=== PATIENT | male | born 1990 | race Caucasian/White ===

== ENCOUNTER 2017-09-01 17:10 | Emergency (ER) | payer BC, MEDICAID ==
[2017-09-01] MEDS ORDERED: Lidocaine 2% Viscous Solution 15 ML Cup PO ONE (17:38)
[2017-09-01] MEDS ORDERED: Benzocaine 20% Topical Spray UD MUCMEM ONE (17:38)
[2017-09-01] MEDS ORDERED: Acetaminophen/HYDROcodone 325-7.5 MG Tab PO ONE (17:38)
--- NOTE | 2017-09-01 17:44 | EDM.PDOC ---
ED HPI GENERAL MEDICAL PROBLEM - General Chief Complaint: General Stated Complaint: TOOTH PAIN Time Seen by Provider: 09/01/17 17:22 - History of Present Illness INITIAL COMMENTS - FREE TEXT/NARRATIVE: HISTORY AND PHYSICAL: History of present illness: The patient is a 26-year-old male who presents with complaints of tooth pain at the left lower molar area which he has known about and in fact his dentist is going to work on next week on Thursday. Patient says he had 2 other teeth removed recently by the dentist and was not given anything for pain and no antibiotics. Patient says he was on antibiotics but he only has several days left in the dentist thought that that would carry him through next week and he is concerned. Patient says that he has been taking Tylenol and Motrin is not working. He has no gross swelling of his face and he otherwise is healthy without fever chills chest pain shortness of breath or sore throat. Review of systems: As per history of present illness and below otherwise all systems reviewed and negative. Past medical history: As per history of present illness and as reviewed below otherwise noncontributory. Surgical history: As per history of present illness and as reviewed below otherwise noncontributory. Social history: No reported history of drug or alcohol abuse. Family history: As per history of present illness and as reviewed below otherwise noncontributory. Physical exam: General: Well-developed well-nourished man who is nontoxic and speaking clearly and easily in the ED. He has no visible facial swelling HEENT: Atraumatic, normocephalic, pupils reactive, negative for conjunctival pallor or scleral icterus, mucous membranes moist, throat clear, neck supple, nontender, trachea midline. There is no cervical adenopathy or nuchal rigidity. There are several areas of dental disease noted throughout the mouth and the area patient indicates is the most discomforting has a silver filling in place already and there is a small chip in the tooth seen. It is a left lower molar. There is some mild gum swelling in the surround but there is no fluctuance Lungs: Clear to auscultation, breath sounds equal bilaterally, chest nontender. Heart: S1S2, regular and rhythm no overt murmurs. Abdomen: Soft, nondistended, nontender. NABS Pelvis: Deferred Genitourinary: Deferred. Rectal: Deferred. Extremities: Atraumatic, negative for cords or calf pain. Neurovascular unremarkable. Neuro: Awake, alert, oriented. Cranial nerves II through XII unremarkable. Cerebellum unremarkable. Motor and sensory unremarkable throughout. Exam nonfocal. Diagnostics: [] Therapeutics: Dental balls Poulan 1 Impression: Dental pain Definitive disposition and diagnosis as appropriate pending reevaluation and review of above. Tooth/Teeth Pain Score (Numeric/FACES): 9 - Related Data Allergies Allergy/AdvReac Type Severity Reaction Status Date / Time No Known Allergies Allergy Verified 09/01/17 17:26 Home Meds: Home Meds . [No Known Home Meds] 05/01/17 [History] Past Medical History - Past Health History Medical/Surgical History: Denies Medical/Surgical History - Infectious Disease History Infectious Disease History: Reports: Chicken Pox - Past Surgical History Head Surgeries/Procedures: Reports: None Respiratory Surgical History: Reports: None Neurological Surgical History: Reports: None Musculoskeletal Surgical History: Reports: Other (See Below) Other Musculoskeletal Surgeries/Procedures:: Hand surgery Dermatological Surgical History: Reports: None Social & Family History - Family History Family Medical History: Unobtainable HEENT: Reports: None - Tobacco Use Smoking Status *Q: Former Smoker Years of Tobacco use: 5 Packs/Tins Daily: 1 Used Tobacco, but Quit: Yes Month Tobacco Last Used: July, Second Hand Smoke Exposure: Yes - Caffeine Use Caffeine Use: Reports: Coffee - Recreational Drug Use Recreational Drug Use: No Drug Use in Last 12 Months: Yes Recreational Drug Type: Reports: Marijuana/Hashish Recreational Drug Use Frequency: Rarely ED ROS GENERAL - Review of Systems Review Of Systems: ROS reveals no pertinent complaints other than HPI. ED EXAM, GENERAL - Physical Exam Exam: See Below (See dictation) Course - Vital Signs Last Recorded V/S: Last Vital Signs Temp 36.6 C 09/01/17 17:23 Pulse 98 09/01/17 17:23 Resp 12 09/01/17 17:23 BP 149/75 H 09/01/17 17:23 Pulse Ox 98 09/01/17 17:23 - Orders/Labs/Meds Orders: Active Orders 24 hr Category Date Time Status Acetaminophen/HYDROcodone [Poulan 325-7.5 MG] Med 09/01/17 17:38 Once 1 tab PO ONETIME ONE Benzocaine [Hurricaine One 20%] Med 09/01/17 17:38 Once 2 each MUCMEM ONETIME ONE Lidocaine 2% [Xylocaine 2% Viscous] Med 09/01/17 17:38 Once 15 ml PO ONETIME ONE Departure - Departure Time of Disposition: 17:42 Disposition: Home, Self-Care 01 Condition: Good Clinical Impression: Pain, dental - Discharge Information Referrals: PCP,None [Primary Care Provider] - Additional Instructions: The following information is given to patients seen in the emergency department who are being discharged to home. This information is to outline your options for follow-up care. We provide all patients seen in our emergency department with a follow-up referral. The need for follow-up, as well as the timing and circumstances, are variable depending upon the specifics of your emergency department visit. If you don't have a primary care physician on staff, we will provide you with a referral. We always advise you to contact your personal physician following an emergency department visit to inform them of the circumstance of the visit and for follow-up with them and/or the need for any referrals to a consulting specialist. The emergency department will also refer you to a specialist when appropriate. This referral assures that you have the opportunity for followup care with a specialist. All of these measure are taken in an effort to provide you with optimal care, which includes your followup. Under all circumstances we always encourage you to contact your private physician who remains a resource for coordinating your care. When calling for followup care, please make the office aware that this follow-up is from your recent emergency room visit. If for any reason you are refused follow-up, please contact the [facility] emergency department at and ask to speak to the emergency department charge nurse. [facility] Primary care- Internal [place] [address] Please take antibiotics as prescribed until finished. Please use the dental balls are been given here in the ER as shown and as needed. Continue with over- the-counter Tylenol or ibuprofen. Return to ER as needed and as discussed in please call and follow-up with her dentist tomorrow as we discussed. Please note that you did receive 1 tablet of Poulan 7.5/325 here in the emergency department any need to inform your employer if they do a random drug tests that you did receive this medication in the emergency department under the direction of the physician. - My Orders Last 24 Hours: My Active Orders 09/01/17 17:38 Acetaminophen/HYDROcodone [Poulan 325-7.5 MG] 1 tab PO ONETIME ONE Benzocaine [Hurricaine One 20%] 2 each MUCMEM ONETIME ONE Lidocaine 2% [Xylocaine 2% Viscous] 15 ml PO ONETIME ONE - Assessment/Plan Last 24 Hours: My Active Orders 09/01/17 17:38 Acetaminophen/HYDROcodone [Poulan 325-7.5 MG] 1 tab PO ONETIME ONE Benzocaine [Hurricaine One 20%] 2 each MUCMEM ONETIME ONE Lidocaine 2% [Xylocaine 2% Viscous] 15 ml PO ONETIME ONE
[2017-09-01 18:15] VITALS: BP 121/71
== END 2017-09-01 18:13 | disposition home or self-care (01) ==
LOC: MW.ED 17:10
DX: K08.89 Other specified disorders of teeth and supporting structures (principal); Z87.891 Personal history of nicotine dependence
CPT/HCPCS: 99282; A9270; 99284

== ENCOUNTER 2019-05-01 14:10 | Emergency (ER) | payer MEDICAID ==
[2019-05-01] MEDS ORDERED: Ketorolac 60 MG/2 ML SDV IM ONE (14:28)
--- NOTE | 2019-05-01 14:29 | EDM.PDOC ---
ED HPI GENERAL MEDICAL PROBLEM - General Stated Complaint: INJURED RIGHT KNEE Time Seen by Provider: 05/01/19 14:15 Source of Information: Reports: Patient History Limitations: Reports: No Limitations - History of Present Illness INITIAL COMMENTS - FREE TEXT/NARRATIVE: History of present illness: []Patient complains of right knee swelling and pain. He denies any trauma or any pre-existing injuries to this knee recall doing anything that would have caused this pain. He denies any fevers, chills or any other joint pain. Patient is ambulatory. Patient also requesting antibiotics for a dental abscess. Review of systems: As per history of present illness and below otherwise all systems reviewed and negative. Past medical history: As per history of present illness and as reviewed below otherwise noncontributory. Surgical history: As per history of present illness and as reviewed below otherwise noncontributory. Social history: No reported history of drug or alcohol abuse. Family history: As per history of present illness and as reviewed below otherwise noncontributory. Physical exam: General: Well developed, well nourished in NAD HEENT: Atraumatic, normocephalic, pupils reactive, negative for conjunctival pallor or scleral icterus, mucous membranes moist, throat clear, neck supple, nontender, trachea midline. Lungs: Clear to auscultation, breath sounds equal bilaterally, chest nontender. Heart: S1S2, regular, negative for clicks, rubs, or JVD. Abdomen: NABS, Soft, nondistended, nontender. Negative for masses or hepatosplenomegaly. Negative for costovertebral tenderness. Pelvis: Stable nontender. Genitourinary: Deferred. Rectal: Deferred. Extremities: Mild swelling above the joint, negative for cords or calf pain. Neurovascular unremarkable. Neuro: Awake, alert, oriented. Cranial nerves II through XII unremarkable. Cerebellum unremarkable. Motor and sensory unremarkable throughout. Exam nonfocal. Skin:warm and dry Diagnostics: X-ray right knee negative Therapeutics: Toradol IM crutches ED Course: Stable Impression: Right knee pain Prescriptions: Alex-Vemike Ortiz Plan: Use ice to knee as much as possible, ibuprofen, Follow-up with orthopedics, use crutches for walking, return if symptoms worsen Definitive disposition and diagnosis as appropriate pending reevaluation and review of above. Right Knee Pain Score (Numeric/FACES): 9 - Related Data Allergies Allergy/AdvReac Type Severity Reaction Status Date / Time No Known Allergies Allergy Verified 05/01/19 14:42 Home Meds: Home Meds Buprenorphine HCl/Naloxone HCl [Suboxone 12 mg-3 mg Sl Film] 12 mg PO DAILY 05/13 [History] Penicillin V Potassium 500 mg PO Q6HR #40 tab 05/01/19 [Rx] busPIRone [Buspar] 15 mg PO TID 05/01/19 [History] Past Medical History - Past Health History Medical/Surgical History: Denies Medical/Surgical History - Infectious Disease History Infectious Disease History: Reports: Chicken Pox - Past Surgical History Head Surgeries/Procedures: Reports: None Respiratory Surgical History: Reports: None Neurological Surgical History: Reports: None Musculoskeletal Surgical History: Reports: Other (See Below) Other Musculoskeletal Surgeries/Procedures:: Hand surgery Dermatological Surgical History: Reports: None Social & Family History - Family History Family Medical History: Unobtainable HEENT: Reports: None - Caffeine Use Caffeine Use: Reports: Coffee Review of Systems - Review of Systems Review Of Systems: See Below ED EXAM, GENERAL - Physical Exam Exam: See Below Course - Vital Signs Last Recorded V/S: Last Vital Signs Temp 96.4 F 05/01/19 14:44 Pulse 105 H 05/01/19 14:44 Resp 17 05/01/19 14:44 BP 117/73 05/01/19 14:44 Pulse Ox 96 05/01/19 14:44 - Orders/Labs/Meds Orders: Active Orders 24 hr Category Date Time Status Knee 3V Rt [CR] Stat Exams 05/01/19 14:21 Taken DME for Discharge [COMM] Stat Oth 05/01/19 15:09 Ordered Meds: Medications Discontinued Medications Generic Name Dose Route Start Last Admin Trade Name Freq PRN Reason Stop Dose Admin Ketorolac Tromethamine 60 mg 05/01/19 14:28 Toradol IM 05/01/19 14:29 ONETIME ONE Departure - Departure Time of Disposition: 15:10 Disposition: Home, Self-Care 01 Condition: Good Clinical Impression: Right knee pain Qualifiers: Chronicity: acute Qualified Code(s): M25.561 - Pain in right knee - Discharge Information *PRESCRIPTION DRUG MONITORING PROGRAM REVIEWED*: No *COPY OF PRESCRIPTION DRUG MONITORING REPORT IN PATIENT LUIS A: No Prescriptions: Penicillin V Potassium 500 mg PO Q6HR #40 tab Referrals: PCP,None [Primary Care Provider] - Additional Instructions: The following information is given to patients seen in the emergency department who are being discharged to home. This information is to outline your options for follow-up care. We provide all patients seen in our emergency department with a follow-up referral. The need for follow-up, as well as the timing and circumstances, are variable depending upon the specifics of your emergency department visit. If you don't have a primary care physician on staff, we will provide you with a referral. We always advise you to contact your personal physician following an emergency department visit to inform them of the circumstance of the visit and for follow-up with them and/or the need for any referrals to a consulting specialist. The emergency department will also refer you to a specialist when appropriate. This referral assures that you have the opportunity for follow-up care with a specialist. All of these measure are taken in an effort to provide you with optimal care, which includes your follow-up. Under all circumstances we always encourage you to contact your private physician who remains a resource for coordinating your care. When calling for follow-up care, please make the office aware that this follow-up is from your recent emergency room visit. If for any reason you are refused follow-up, please contact the [facility] Emergency Department at and asked to speak to the emergency department charge nurse. [facility] [address], [address] [place] [address] - My Orders Last 24 Hours: My Active Orders 05/01/19 14:21 Knee 3V Rt [CR] Stat 05/01/19 15:09 DME for Discharge [COMM] Stat - Assessment/Plan Last 24 Hours: My Active Orders 05/01/19 14:21 Knee 3V Rt [CR] Stat 05/01/19 15:09 DME for Discharge [COMM] Stat
--- NOTE | 2019-05-01 15:18 | CR ---
INDICATION: Pain. No injury. TECHNIQUE: Three views right knee. FINDINGS: There is no joint effusion. Joint spaces are maintained. No bony erosive or bony productive changes or osteochondral lesion. IMPRESSION: Negative right knee. Dictated by Gracy Francois MD @ May 01 2019 3:16PM Signed by Dr. Gracy Francois @ May 01 2019 3:17PM
[2019-05-01 15:48] VITALS: BP 113/59
== END 2019-05-01 15:48 | disposition home or self-care (01) ==
LOC: MW.ED 14:10
DX: M25.561 Pain in right knee (principal)
CPT/HCPCS: 73562; 96372; 99283; J1885

== ENCOUNTER 2019-05-09 18:47 | Observation (INO) | payer MEDICAID ==
[2019-05-09] MEDS ORDERED: Sodium Chloride 0.9% 1,000 ML IV ONE (19:21)
[2019-05-09] MEDS ORDERED: Vancomycin 1 GM SDV ONE (19:56)
[2019-05-09] MEDS ORDERED: Sodium Chloride 0.9% 250 ML ONE (19:57)
[2019-05-09 20:00] LABS: CHLORIDE,CL 101 mmol/L (98-107); SODIUM,NA 136 mmol/L (136-148)
[2019-05-09] MEDS ORDERED: Piperacillin/Tazobactam 3.375 GM in Sodium Chloride 0.9% 50 ML IV ONE (20:00)
--- NOTE | 2019-05-09 20:13 | EDM.PDOC ---
ED HPI GENERAL MEDICAL PROBLEM - General Chief Complaint: Lower Extremity Injury/Pain Stated Complaint: PT HURT RT KNEE Time Seen by Provider: 05/09/19 19:19 - History of Present Illness INITIAL COMMENTS - FREE TEXT/NARRATIVE: HISTORY AND PHYSICAL: History of present illness: Patient 28-year-old white male history of IV drug abuse was been on Suboxone but states he has been using Suboxone via intravenous injection per himself who was seen on the seventh of this month with right knee pain and swelling he had ultrasound at that time an x-ray that were unremarkable other than localized swelling there was no evidence of deep venous thrombosis he did not report fever at that time and denied any trauma he was sent to orthopedic surgery repeated no ultrasound that same day that was suggestive of possible abscess and was sent to [facility] for orthopedic care which was unavailable at that time he was admitted for IV antibiotics and orthopedic consultation and MRI was discharged on clindamycin and he returns now with increasing pain redness and fevers high as 103. There's been no nausea or vomiting he denies any new trauma or other concern Review of systems: As per history of present illness and below otherwise all systems reviewed and negative. Past medical history: As per history of present illness and as reviewed below otherwise noncontributory. Surgical history: As per history of present illness and as reviewed below otherwise noncontributory. Social history: No reported history of drug or alcohol abuse. Family history: As per history of present illness and as reviewed below otherwise noncontributory. Physical exam: HEENT: Atraumatic, normocephalic, pupils reactive, negative for conjunctival pallor or scleral icterus, mucous membranes moist, throat clear, neck supple, nontender, trachea midline. Lungs: Clear to auscultation, breath sounds equal bilaterally, chest nontender. Heart: S1S2, regular, negative for clicks, rubs, or JVD. Abdomen: Soft, nondistended, nontender. Negative for masses or hepatosplenomegaly. Negative for costovertebral tenderness. Pelvis: Stable nontender. Genitourinary: Deferred. Rectal: Deferred. Extremities: Patient is noted have large swelling and tenderness to his right knee with marked tenderness and limited range of motion secondary tenderness he is noted to have erythema and what appears to be a lymphangitis. Neurovascular exam is unremarkable Neuro: Awake, alert, oriented. Cranial nerves II through XII unremarkable. Cerebellum unremarkable. Motor and sensory unremarkable throughout. Exam nonfocal. Diagnostics: CBC CMP x-ray right knee blood culture 2 Therapeutics: Saline 1 L bolus vancomycin 1 g IV Zosyn 3.375 g IV Impression: #1 right knee pain/swelling etiology to be determined rule out septic arthritis Definitive disposition and diagnosis as appropriate pending reevaluation and review of above. Right Knee Pain Score (Numeric/FACES): 5 - Related Data Allergies Allergy/AdvReac Type Severity Reaction Status Date / Time No Known Allergies Allergy Verified 05/09/19 19:09 Home Meds: Home Meds Buprenorphine HCl/Naloxone HCl [Suboxone 12 mg-3 mg Sl Film] 12 mg PO DAILY 05/13 [History] busPIRone [Buspar] 15 mg PO TID 05/01/19 [History] Acetaminophen 1,000 mg PO ASDIRECTED 05/09/19 [History] Clindamycin HCl [Cleocin] 300 mg PO QID 05/09/19 [History] Ibuprofen 800 mg PO ASDIRECTED 05/09/19 [History] Past Medical History - Past Health History Medical/Surgical History: Denies Medical/Surgical History Respiratory History: Reports: Asthma Psychiatric History: Reports: Addiction, Anxiety, Depression - Infectious Disease History Infectious Disease History: Reports: Chicken Pox - Past Surgical History Head Surgeries/Procedures: Reports: None Respiratory Surgical History: Reports: None Neurological Surgical History: Reports: None Musculoskeletal Surgical History: Reports: Other (See Below) Other Musculoskeletal Surgeries/Procedures:: Hand surgery Dermatological Surgical History: Reports: None Social & Family History - Family History Family Medical History: Unobtainable HEENT: Reports: None - Tobacco Use Smoking Status *Q: Current Every Day Smoker Years of Tobacco use: 6 Packs/Tins Daily: 0.5 - Caffeine Use Caffeine Use: Reports: Coffee, Soda - Recreational Drug Use Recreational Drug Use: Yes Drug Use in Last 12 Months: Yes Recreational Drug Type: Reports: Heroin Review of Systems - Review of Systems Review Of Systems: ROS reveals no pertinent complaints other than HPI. ED EXAM, GENERAL - Physical Exam Exam: See Below (See dictation) Course - Vital Signs Last Recorded V/S: Last Vital Signs Temp 37.3 C 05/09/19 19:12 Pulse 88 05/09/19 21:53 Resp 18 05/09/19 21:53 BP 120/63 05/09/19 21:53 Pulse Ox 98 05/09/19 21:53 - Orders/Labs/Meds Orders: Active Orders 24 hr Category Date Time Status Femur wo Cont Rt [CT] Stat Exams 05/09/19 22:09 Ordered CRYSTALS,BODY FLUID [BF] Stat Lab 05/09/19 20:45 Received CULTURE BLOOD [BC] Stat Lab 05/09/19 19:28 Received CULTURE BLOOD [BC] Stat Lab 05/09/19 19:43 Received CULTURE BODY FLUID + SMEAR [RM] Stat Lab 05/09/19 20:45 Received Blood Culture x2 Reflex Set [OM.PC] Stat Oth 05/09/19 19:20 Ordered Labs: Laboratory Tests 05/09/19 05/09/19 05/09/19 Range/Units 19:28 19:28 19:28 WBC 12.90 H (4.0-11.0) K/uL RBC 4.30 L (4.50-5.90) M/uL Hgb 11.9 L (13.0-17.0) g/dL Hct 35.4 L (38.0-50.0) % MCV 82.3 (80.0-98.0) fL MCH 27.7 (27.0-32.0) pg MCHC 33.6 (31.0-37.0) g/dL RDW Std Deviation 39.8 (28.0-62.0) fl RDW Coeff of Michele 13 (11.0-15.0) % Plt Count 298 (150-400) K/uL MPV 9.10 (7.40-12.00) fL Neut % (Auto) 70.9 (48.0-80.0) % Lymph % (Auto) 14.8 L (16.0-40.0) % [place] % (Auto) 12.2 (0.0-15.0) % Eos % (Auto) 1.9 (0.0-7.0) % Baso % (Auto) 0.2 (0.0-1.5) % Neut # (Auto) 9.2 H (1.4-5.7) K/uL Lymph # (Auto) 1.9 (0.6-2.4) K/uL [place] # (Auto) 1.6 H (0.0-0.8) K/uL Eos # (Auto) 0.2 (0.0-0.7) K/uL Baso # (Auto) 0.0 (0.0-0.1) K/uL Nucleated RBC % 0.0 /100WBC Nucleated RBCs # 0 K/uL ESR 49 H (0-14) mm/hr Sodium 136 (136-148) mmol/L Potassium 3.4 L (3.5-5.1) mmol/L Chloride 101 (98-107) mmol/L Carbon Dioxide 26.7 (21.0-32.0) mmol/L BUN 10 (7.0-18.0) mg/dL Creatinine 0.8 (0.8-1.3) mg/dL Est Cr Clr Drug Dosing 149.54 mL/min Estimated GFR (MDRD) > 60.0 ml/min Glucose 149 H (74-106) mg/dL Calcium 8.3 L (8.5-10.1) mg/dL Total Bilirubin 0.2 (0.2-1.0) mg/dL AST 14 L (15-37) IU/L ALT 14 (14-63) IU/L Alkaline Phosphatase 88 (46-116) U/L C-Reactive Protein (0.00-0.90) mg/dL Total Protein 7.3 (6.4-8.2) g/dL Albumin 2.6 L (3.4-5.0) g/dL Globulin 4.7 H (2.6-4.0) g/dL Albumin/Globulin Ratio 0.6 L (0.9-1.6) Urine Color Urine Appearance Urine pH (5.0-8.0) Ur Specific [place] (1.001-1.035) Urine Protein (NEGATIVE) mg/dL Urine Glucose (UA) (NEGATIVE) mg/dL Urine Ketones (NEGATIVE) mg/dL Urine Occult Blood (NEGATIVE) Urine Nitrite (NEGATIVE) Urine Bilirubin (NEGATIVE) Urine Urobilinogen (<2.0) EU/dL Ur Leukocyte Esterase (NEGATIVE) Urine RBC (0-2/HPF) Urine WBC (0-5/HPF) Ur Epithelial Cells (NONE-FEW) Urine Bacteria (NEGATIVE) Fluid Type Fluid Color Fluid Appearance Fluid WBC K/uL Fluid RBC M/uL Fluid Mononuclear Cell % Fl Polymorphonucl Cell % Urine Opiates Screen (NEGATIVE) Ur Oxycodone Screen (NEGATIVE) Urine Methadone Screen (NEGATIVE) Ur Barbiturates Screen (NEGATIVE) Ur Phencyclidine Scrn (NEGATIVE) Ur Amphetamine Screen (NEGATIVE) U Methamphetamines Scrn (NEGATIVE) U Benzodiazepines Scrn (NEGATIVE) U Cocaine Metab Screen (NEGATIVE) U Marijuana (THC) Screen (NEGATIVE) 05/09/19 05/09/19 05/09/19 Range/Units 19:28 20:45 20:50 WBC (4.0-11.0) K/uL RBC (4.50-5.90) M/uL Hgb (13.0-17.0) g/dL Hct (38.0-50.0) % MCV (80.0-98.0) fL MCH (27.0-32.0) pg MCHC (31.0-37.0) g/dL RDW Std Deviation (28.0-62.0) fl RDW Coeff of Michele (11.0-15.0) % Plt Count (150-400) K/uL MPV (7.40-12.00) fL Neut % (Auto) (48.0-80.0) % Lymph % (Auto) (16.0-40.0) % [place] % (Auto) (0.0-15.0) % Eos % (Auto) (0.0-7.0) % Baso % (Auto) (0.0-1.5) % Neut # (Auto) (1.4-5.7) K/uL Lymph # (Auto) (0.6-2.4) K/uL [place] # (Auto) (0.0-0.8) K/uL Eos # (Auto) (0.0-0.7) K/uL Baso # (Auto) (0.0-0.1) K/uL Nucleated RBC % /100WBC Nucleated RBCs # K/uL ESR (0-14) mm/hr Sodium (136-148) mmol/L Potassium (3.5-5.1) mmol/L Chloride (98-107) mmol/L Carbon Dioxide (21.0-32.0) mmol/L BUN (7.0-18.0) mg/dL Creatinine (0.8-1.3) mg/dL Est Cr Clr Drug Dosing mL/min Estimated GFR (MDRD) ml/min Glucose (74-106) mg/dL Calcium (8.5-10.1) mg/dL Total Bilirubin (0.2-1.0) mg/dL AST (15-37) IU/L ALT (14-63) IU/L Alkaline Phosphatase (46-116) U/L C-Reactive Protein 20.20 H (0.00-0.90) mg/dL Total Protein (6.4-8.2) g/dL Albumin (3.4-5.0) g/dL Globulin (2.6-4.0) g/dL Albumin/Globulin Ratio (0.9-1.6) Urine Color YELLOW Urine Appearance CLEAR Urine pH 6.0 (5.0-8.0) Ur Specific [place] <= 1.005 (1.001-1.035) Urine Protein NEGATIVE (NEGATIVE) mg/dL Urine Glucose (UA) NEGATIVE (NEGATIVE) mg/dL Urine Ketones NEGATIVE (NEGATIVE) mg/dL Urine Occult Blood TRACE-INTACT H (NEGATIVE) Urine Nitrite NEGATIVE (NEGATIVE) Urine Bilirubin NEGATIVE (NEGATIVE) Urine Urobilinogen 0.2 (<2.0) EU/dL Ur Leukocyte Esterase NEGATIVE (NEGATIVE) Urine RBC NONE SEEN (0-2/HPF) Urine WBC NONE SEEN (0-5/HPF) Ur Epithelial Cells NOT SEEN (NONE-FEW) Urine Bacteria RARE (NEGATIVE) Fluid Type SYN Fluid Color RED Fluid Appearance CLOUDY Fluid WBC 2.61 K/uL Fluid RBC 0.13 M/uL Fluid Mononuclear Cell 39.4 % Fl Polymorphonucl Cell 60.6 % Urine Opiates Screen (NEGATIVE) Ur Oxycodone Screen (NEGATIVE) Urine Methadone Screen (NEGATIVE) Ur Barbiturates Screen (NEGATIVE) Ur Phencyclidine Scrn (NEGATIVE) Ur Amphetamine Screen (NEGATIVE) U Methamphetamines Scrn (NEGATIVE) U Benzodiazepines Scrn (NEGATIVE) U Cocaine Metab Screen (NEGATIVE) U Marijuana (THC) Screen (NEGATIVE) 05/09/19 Range/Units 20:50 WBC (4.0-11.0) K/uL RBC (4.50-5.90) M/uL Hgb (13.0-17.0) g/dL Hct (38.0-50.0) % MCV (80.0-98.0) fL MCH (27.0-32.0) pg MCHC (31.0-37.0) g/dL RDW Std Deviation (28.0-62.0) fl RDW Coeff of Michele (11.0-15.0) % Plt Count (150-400) K/uL MPV (7.40-12.00) fL Neut % (Auto) (48.0-80.0) % Lymph % (Auto) (16.0-40.0) % [place] % (Auto) (0.0-15.0) % Eos % (Auto) (0.0-7.0) % Baso % (Auto) (0.0-1.5) % Neut # (Auto) (1.4-5.7) K/uL Lymph # (Auto) (0.6-2.4) K/uL [place] # (Auto) (0.0-0.8) K/uL Eos # (Auto) (0.0-0.7) K/uL Baso # (Auto) (0.0-0.1) K/uL Nucleated RBC % /100WBC Nucleated RBCs # K/uL ESR (0-14) mm/hr Sodium (136-148) mmol/L Potassium (3.5-5.1) mmol/L Chloride (98-107) mmol/L Carbon Dioxide (21.0-32.0) mmol/L BUN (7.0-18.0) mg/dL Creatinine (0.8-1.3) mg/dL Est Cr Clr Drug Dosing mL/min Estimated GFR (MDRD) ml/min Glucose (74-106) mg/dL Calcium (8.5-10.1) mg/dL Total Bilirubin (0.2-1.0) mg/dL AST (15-37) IU/L ALT (14-63) IU/L Alkaline Phosphatase (46-116) U/L C-Reactive Protein (0.00-0.90) mg/dL Total Protein (6.4-8.2) g/dL Albumin (3.4-5.0) g/dL Globulin (2.6-4.0) g/dL Albumin/Globulin Ratio (0.9-1.6) Urine Color Urine Appearance Urine pH (5.0-8.0) Ur Specific [place] (1.001-1.035) Urine Protein (NEGATIVE) mg/dL Urine Glucose (UA) (NEGATIVE) mg/dL Urine Ketones (NEGATIVE) mg/dL Urine Occult Blood (NEGATIVE) Urine Nitrite (NEGATIVE) Urine Bilirubin (NEGATIVE) Urine Urobilinogen (<2.0) EU/dL Ur Leukocyte Esterase (NEGATIVE) Urine RBC (0-2/HPF) Urine WBC (0-5/HPF) Ur Epithelial Cells (NONE-FEW) Urine Bacteria (NEGATIVE) Fluid Type Fluid Color Fluid Appearance Fluid WBC K/uL Fluid RBC M/uL Fluid Mononuclear Cell % Fl Polymorphonucl Cell % Urine Opiates Screen NEGATIVE (NEGATIVE) Ur Oxycodone Screen NEGATIVE (NEGATIVE) Urine Methadone Screen NEGATIVE (NEGATIVE) Ur Barbiturates Screen NEGATIVE (NEGATIVE) Ur Phencyclidine Scrn NEGATIVE (NEGATIVE) Ur Amphetamine Screen POSITIVE (NEGATIVE) U Methamphetamines Scrn NEGATIVE (NEGATIVE) U Benzodiazepines Scrn NEGATIVE (NEGATIVE) U Cocaine Metab Screen NEGATIVE (NEGATIVE) U Marijuana (THC) Screen POSITIVE (NEGATIVE) Meds: Medications Discontinued Medications Generic Name Dose Route Start Last Admin Trade Name Freq PRN Reason Stop Dose Admin Sodium Chloride 1,000 mls @ 999 mls/hr 05/09/19 19:21 05/09/19 19:33 Normal Saline IV 05/09/19 20:21 999 mls/hr .Bolus ONE Administration Vancomycin HCl 1 gm/ Sodium 250 mls @ 166 mls/hr 05/09/19 19:40 05/09/19 20: 08 Chloride IV 05/09/19 21:10 166 mls/hr ONETIME ONE Administration Piperacillin Sod/Tazobactam 50 mls @ 100 mls/hr 05/09/19 20:00 05/09/19 21:52 Sod 3.375 gm/ Sodium Chloride IV 05/09/19 20:29 100 mls/hr ONETIME ONE Administration Sodium Chloride Confirm 05/09/19 19:57 05/09/19 20:09 Normal Saline Administered 05/09/19 19:58 Not Given Dose 250 mls @ as directed .ROUTE .STK-MED ONE Vancomycin HCl Confirm 05/09/19 19:56 05/09/19 20:09 Vancomycin Administered 05/09/19 19:57 Not Given Dose 1 gm .ROUTE .STK-MED ONE Departure - Departure Time of Disposition: 22:20 Disposition: Admitted As Inpatient 65 Condition: Good Clinical Impression: Cellulitis, History of intravenous drug abuse Right knee pain Qualifiers: Chronicity: acute Qualified Code(s): M25.561 - Pain in right knee - Discharge Information Referrals: PCP,None [Primary Care Provider] - Forms: ED Department Discharge - My Orders Last 24 Hours: My Active Orders 05/09/19 19:20 Blood Culture x2 Reflex Set [OM.PC] Stat 05/09/19 19:28 CULTURE BLOOD [BC] Stat 05/09/19 19:43 CULTURE BLOOD [BC] Stat - Assessment/Plan Last 24 Hours: My Active Orders 05/09/19 19:20 Blood Culture x2 Reflex Set [OM.PC] Stat 05/09/19 19:28 CULTURE BLOOD [BC] Stat 05/09/19 19:43 CULTURE BLOOD [BC] Stat
--- NOTE | 2019-05-09 20:27 | CR ---
TECHNIQUE: Portable AP chest. INDICATION: Knee infection. FINDINGS: Lungs are clear. Normal heart size and pulmonary vascularity. No pleural effusion. No pneumothorax. IMPRESSION: Normal chest. Dictated by Pritesh Lane MD @ 05/09/2019 8:26:49 PM Dictated by: Pritesh Lane MD @ 05/09/2019 20:26:52 (Electronically Signed)
--- NOTE | 2019-05-09 20:31 | CR ---
TECHNIQUE: Three views of the right knee. INDICATION: Pain, swelling, infection. FINDINGS: AP and lateral images are underpenetrated. No right knee fracture, dislocation, or effusion identified. Joint space preserved. Normal right knee Dictated by Pritesh Lane MD @ 05/09/2019 8:30:03 PM Dictated by: Pritesh Lane MD @ 05/09/2019 20:30:07 (Electronically Signed)
--- NOTE | 2019-05-09 21:24 | PCM.CONS ---
H&P History of Present Illness - General Date of Service: 05/09/19 Source of Information: Patient, Old Records History Limitations: Reports: No Limitations - History of Present Illness Initial Comments - Free Text/Narative: Patient is a 28-year-old male who presents to the emergency room with complaint of right knee and thigh pain. He states that his pain began approximately 8 days ago. He presented to the emergency room at that time. He was instructed to ice the knee and take ibuprofen as needed. He was started on Pen-Vee K for a dental abscess at that time. He was subsequently seen in the clinic by the orthopedic PA. He was referred for an ultrasound of the right lower extremity. Ultrasound of the medial right lower thigh performed on May 06, 2019 showed a multiloculated, complex fluid collection deep in the subcutaneous tissues in the medial lower thigh suspicious for an abscess. This measured 4.8 x 4.1 x 5.0 cm. He was then referred to [facility] for orthopedic care. The records from [facility] show that he was admitted overnight and given IV antibiotics. An MRI report of the right knee did show evidence of intra-articular fluid with no other abnormalities. He was discharged home this past Thursday. He states that over the past 2 days he has had an increase in his right knee and thigh pain. He has had fever and chills at home. He states he has documented fevers of 103. He cannot recall any specific injury to the right knee. He does have a history of IV drug abuse and has been in treatment. He states he has not used any drugs since January 2019. He is currently on Suboxone and chooses to inject the Suboxone. He states that he has not ever injected into the region of his right medial thigh. He denies distal paralysis or paresthesias. Location: Reports: Lower Extremity, Right Quality: Reports: Throbbing Severity: Moderate Improves with: Reports: Immobilization, Rest Worsens with: Reports: Movement Context: Denies: Sick Contact, Trauma Associated Symptoms: Reports: Fever/Chills, Malaise. Denies: Headaches, Nausea/ Vomiting, Shortness of Breath Right Knee Pain Score (Numeric/FACES): 5 - Related Data Allergies/Adverse Reactions: Allergies Allergy/AdvReac Type Severity Reaction Status Date / Time No Known Allergies Allergy Verified 05/09/19 19:09 Home Medications: Home Meds Buprenorphine HCl/Naloxone HCl [Suboxone 12 mg-3 mg Sl Film] 12 mg PO DAILY 05/13 [History] busPIRone [Buspar] 15 mg PO TID 05/01/19 [History] Acetaminophen 1,000 mg PO ASDIRECTED 05/09/19 [History] Clindamycin HCl [Cleocin] 300 mg PO QID 05/09/19 [History] Ibuprofen 800 mg PO ASDIRECTED 05/09/19 [History] Past Medical History - Past Health History Medical/Surgical History: Denies Medical/Surgical History Respiratory History: Reports: Asthma Psychiatric History: Reports: Addiction, Anxiety, Depression - Infectious Disease History Infectious Disease History: Reports: Chicken Pox - Past Surgical History Head Surgeries/Procedures: Reports: None Respiratory Surgical History: Reports: None Neurological Surgical History: Reports: None Musculoskeletal Surgical History: Reports: Other (See Below) Other Musculoskeletal Surgeries/Procedures:: Hand surgery Dermatological Surgical History: Reports: None Social & Family History - Family History Family Medical History: Unobtainable HEENT: Reports: None - Tobacco Use Smoking Status *Q: Current Every Day Smoker Years of Tobacco use: 6 Packs/Tins Daily: 0.5 - Caffeine Use Caffeine Use: Reports: Coffee, Soda - Recreational Drug Use Recreational Drug Use: Yes Drug Use in Last 12 Months: Yes Recreational Drug Type: Reports: Heroin - Living Situation & Occupation Occupation: Unemployed H&P Review of Systems - Review of Systems: Review Of Systems: See Below General: Reports: Fever, Chills, Malaise HEENT: Reports: No Symptoms Pulmonary: Reports: No Symptoms Cardiovascular: Reports: No Symptoms Gastrointestinal: Reports: No Symptoms Genitourinary: Reports: No Symptoms Musculoskeletal: Reports: Joint Pain, Joint Swelling Skin: Reports: Erythema (right medial thigh) Psychiatric: Reports: No Symptoms Neurological: Reports: No Symptoms Hematologic/Lymphatic: Reports: No Symptoms Exam - Exam Exam: See Below - Vital Signs Vital Signs: Last Vital Signs Temp 99.1 F 05/09/19 19:12 Pulse 83 05/09/19 19:12 Resp 24 H 05/09/19 19:12 BP 135/68 05/09/19 19:12 Pulse Ox 98 05/09/19 19:12 Weight: 195 kg - Exam General: Alert, Oriented, 4 HEENT: Conjunctiva Clear, Hearing Intact, Nares Patent Neck: Supple, Trachea Midline, 2 Lungs: Normal Respiratory Effort Cardiovascular: Regular Rate GI/Abdominal Exam: Soft Neuro Extensive - Mental Status: Alert, Oriented x3, Normal Mood/Affect, Normal Cognition Psychiatric: Alert, Normal Affect, Normal Mood Physical Exam Comments:: Exam of the right knee: Gait: Not assessed Erythema along the right medial thigh noted. He does have palpable tenderness in this area however no specific fluid collection is noted. He has no significant joint effusion. Skin integrity is intact. Tenderness to palpation: No tenderness along the medial and lateral joint line. Majority of tenderness appears to be along the medial thigh. Range of motion: Fixed at approximately 45 of flexion. He complains of pain with passive or active motion. Stable to varus and valgus stress testing No calf tenderness There is no pain with gentle rotation of either hip, and both show symmetrical motion. Anterior tib/EHL/gastroc strength is 5/ 5. Sensation is grossly intact throughout the lower extremity. Dorsalis pedis and posterior tibial pulses are 2 +. - Patient Data Lab Results Last 24 hrs: Laboratory Results - last 24 hr 05/09/19 05/09/19 05/09/19 Range/Units 19:28 19:28 19:28 WBC 12.90 H (4.0-11.0) K/uL RBC 4.30 L (4.50-5.90) M/uL Hgb 11.9 L (13.0-17.0) g/dL Hct 35.4 L (38.0-50.0) % MCV 82.3 (80.0-98.0) fL MCH 27.7 (27.0-32.0) pg MCHC 33.6 (31.0-37.0) g/dL RDW Std Deviation 39.8 (28.0-62.0) fl RDW Coeff of Michele 13 (11.0-15.0) % Plt Count 298 (150-400) K/uL MPV 9.10 (7.40-12.00) fL Neut % (Auto) 70.9 (48.0-80.0) % Lymph % (Auto) 14.8 L (16.0-40.0) % Barnwell % (Auto) 12.2 (0.0-15.0) % Eos % (Auto) 1.9 (0.0-7.0) % Baso % (Auto) 0.2 (0.0-1.5) % Neut # (Auto) 9.2 H (1.4-5.7) K/uL Lymph # (Auto) 1.9 (0.6-2.4) K/uL Barnwell # (Auto) 1.6 H (0.0-0.8) K/uL Eos # (Auto) 0.2 (0.0-0.7) K/uL Baso # (Auto) 0.0 (0.0-0.1) K/uL Nucleated RBC % 0.0 /100WBC Nucleated RBCs # 0 K/uL ESR 49 H (0-14) mm/hr Sodium 136 (136-148) mmol/L Potassium 3.4 L (3.5-5.1) mmol/L Chloride 101 (98-107) mmol/L Carbon Dioxide 26.7 (21.0-32.0) mmol/L BUN 10 (7.0-18.0) mg/dL Creatinine 0.8 (0.8-1.3) mg/dL Est Cr Clr Drug Dosing 149.54 mL/min Estimated GFR (MDRD) > 60.0 ml/min Glucose 149 H (74-106) mg/dL Calcium 8.3 L (8.5-10.1) mg/dL Total Bilirubin 0.2 (0.2-1.0) mg/dL AST 14 L (15-37) IU/L ALT 14 (14-63) IU/L Alkaline Phosphatase 88 (46-116) U/L C-Reactive Protein (0.00-0.90) mg/dL Total Protein 7.3 (6.4-8.2) g/dL Albumin 2.6 L (3.4-5.0) g/dL Globulin 4.7 H (2.6-4.0) g/dL Albumin/Globulin Ratio 0.6 L (0.9-1.6) Urine Color Urine Appearance Urine pH (5.0-8.0) Ur Specific Lena (1.001-1.035) Urine Protein (NEGATIVE) mg/dL Urine Glucose (UA) (NEGATIVE) mg/dL Urine Ketones (NEGATIVE) mg/dL Urine Occult Blood (NEGATIVE) Urine Nitrite (NEGATIVE) Urine Bilirubin (NEGATIVE) Urine Urobilinogen (<2.0) EU/dL Ur Leukocyte Esterase (NEGATIVE) Urine RBC (0-2/HPF) Urine WBC (0-5/HPF) Ur Epithelial Cells (NONE-FEW) Urine Bacteria (NEGATIVE) Fluid Type Fluid Color Fluid Appearance Fluid WBC K/uL Fluid RBC M/uL Fluid Mononuclear Cell % Fl Polymorphonucl Cell % Urine Opiates Screen (NEGATIVE) Ur Oxycodone Screen (NEGATIVE) Urine Methadone Screen (NEGATIVE) Ur Barbiturates Screen (NEGATIVE) Ur Phencyclidine Scrn (NEGATIVE) Ur Amphetamine Screen (NEGATIVE) U Methamphetamines Scrn (NEGATIVE) U Benzodiazepines Scrn (NEGATIVE) U Cocaine Metab Screen (NEGATIVE) U Marijuana (THC) Screen (NEGATIVE) 05/09/19 05/09/19 05/09/19 Range/Units 19:28 20:45 20:50 WBC (4.0-11.0) K/uL RBC (4.50-5.90) M/uL Hgb (13.0-17.0) g/dL Hct (38.0-50.0) % MCV (80.0-98.0) fL MCH (27.0-32.0) pg MCHC (31.0-37.0) g/dL RDW Std Deviation (28.0-62.0) fl RDW Coeff of Michele (11.0-15.0) % Plt Count (150-400) K/uL MPV (7.40-12.00) fL Neut % (Auto) (48.0-80.0) % Lymph % (Auto) (16.0-40.0) % Barnwell % (Auto) (0.0-15.0) % Eos % (Auto) (0.0-7.0) % Baso % (Auto) (0.0-1.5) % Neut # (Auto) (1.4-5.7) K/uL Lymph # (Auto) (0.6-2.4) K/uL Barnwell # (Auto) (0.0-0.8) K/uL Eos # (Auto) (0.0-0.7) K/uL Baso # (Auto) (0.0-0.1) K/uL Nucleated RBC % /100WBC Nucleated RBCs # K/uL ESR (0-14) mm/hr Sodium (136-148) mmol/L Potassium (3.5-5.1) mmol/L Chloride (98-107) mmol/L Carbon Dioxide (21.0-32.0) mmol/L BUN (7.0-18.0) mg/dL Creatinine (0.8-1.3) mg/dL Est Cr Clr Drug Dosing mL/min Estimated GFR (MDRD) ml/min Glucose (74-106) mg/dL Calcium (8.5-10.1) mg/dL Total Bilirubin (0.2-1.0) mg/dL AST (15-37) IU/L ALT (14-63) IU/L Alkaline Phosphatase (46-116) U/L C-Reactive Protein 20.20 H (0.00-0.90) mg/dL Total Protein (6.4-8.2) g/dL Albumin (3.4-5.0) g/dL Globulin (2.6-4.0) g/dL Albumin/Globulin Ratio (0.9-1.6) Urine Color YELLOW Urine Appearance CLEAR Urine pH 6.0 (5.0-8.0) Ur Specific Lena <= 1.005 (1.001-1.035) Urine Protein NEGATIVE (NEGATIVE) mg/dL Urine Glucose (UA) NEGATIVE (NEGATIVE) mg/dL Urine Ketones NEGATIVE (NEGATIVE) mg/dL Urine Occult Blood TRACE-INTACT H (NEGATIVE) Urine Nitrite NEGATIVE (NEGATIVE) Urine Bilirubin NEGATIVE (NEGATIVE) Urine Urobilinogen 0.2 (<2.0) EU/dL Ur Leukocyte Esterase NEGATIVE (NEGATIVE) Urine RBC NONE SEEN (0-2/HPF) Urine WBC NONE SEEN (0-5/HPF) Ur Epithelial Cells NOT SEEN (NONE-FEW) Urine Bacteria RARE (NEGATIVE) Fluid Type SYN Fluid Color RED Fluid Appearance CLOUDY Fluid WBC 2.61 K/uL Fluid RBC 0.13 M/uL Fluid Mononuclear Cell 39.4 % Fl Polymorphonucl Cell 60.6 % Urine Opiates Screen (NEGATIVE) Ur Oxycodone Screen (NEGATIVE) Urine Methadone Screen (NEGATIVE) Ur Barbiturates Screen (NEGATIVE) Ur Phencyclidine Scrn (NEGATIVE) Ur Amphetamine Screen (NEGATIVE) U Methamphetamines Scrn (NEGATIVE) U Benzodiazepines Scrn (NEGATIVE) U Cocaine Metab Screen (NEGATIVE) U Marijuana (THC) Screen (NEGATIVE) 05/09/19 Range/Units 20:50 WBC (4.0-11.0) K/uL RBC (4.50-5.90) M/uL Hgb (13.0-17.0) g/dL Hct (38.0-50.0) % MCV (80.0-98.0) fL MCH (27.0-32.0) pg MCHC (31.0-37.0) g/dL RDW Std Deviation (28.0-62.0) fl RDW Coeff of Michele (11.0-15.0) % Plt Count (150-400) K/uL MPV (7.40-12.00) fL Neut % (Auto) (48.0-80.0) % Lymph % (Auto) (16.0-40.0) % Barnwell % (Auto) (0.0-15.0) % Eos % (Auto) (0.0-7.0) % Baso % (Auto) (0.0-1.5) % Neut # (Auto) (1.4-5.7) K/uL Lymph # (Auto) (0.6-2.4) K/uL Barnwell # (Auto) (0.0-0.8) K/uL Eos # (Auto) (0.0-0.7) K/uL Baso # (Auto) (0.0-0.1) K/uL Nucleated RBC % /100WBC Nucleated RBCs # K/uL ESR (0-14) mm/hr Sodium (136-148) mmol/L Potassium (3.5-5.1) mmol/L Chloride (98-107) mmol/L Carbon Dioxide (21.0-32.0) mmol/L BUN (7.0-18.0) mg/dL Creatinine (0.8-1.3) mg/dL Est Cr Clr Drug Dosing mL/min Estimated GFR (MDRD) ml/min Glucose (74-106) mg/dL Calcium (8.5-10.1) mg/dL Total Bilirubin (0.2-1.0) mg/dL AST (15-37) IU/L ALT (14-63) IU/L Alkaline Phosphatase (46-116) U/L C-Reactive Protein (0.00-0.90) mg/dL Total Protein (6.4-8.2) g/dL Albumin (3.4-5.0) g/dL Globulin (2.6-4.0) g/dL Albumin/Globulin Ratio (0.9-1.6) Urine Color Urine Appearance Urine pH (5.0-8.0) Ur Specific Lena (1.001-1.035) Urine Protein (NEGATIVE) mg/dL Urine Glucose (UA) (NEGATIVE) mg/dL Urine Ketones (NEGATIVE) mg/dL Urine Occult Blood (NEGATIVE) Urine Nitrite (NEGATIVE) Urine Bilirubin (NEGATIVE) Urine Urobilinogen (<2.0) EU/dL Ur Leukocyte Esterase (NEGATIVE) Urine RBC (0-2/HPF) Urine WBC (0-5/HPF) Ur Epithelial Cells (NONE-FEW) Urine Bacteria (NEGATIVE) Fluid Type Fluid Color Fluid Appearance Fluid WBC K/uL Fluid RBC M/uL Fluid Mononuclear Cell % Fl Polymorphonucl Cell % Urine Opiates Screen NEGATIVE (NEGATIVE) Ur Oxycodone Screen NEGATIVE (NEGATIVE) Urine Methadone Screen NEGATIVE (NEGATIVE) Ur Barbiturates Screen NEGATIVE (NEGATIVE) Ur Phencyclidine Scrn NEGATIVE (NEGATIVE) Ur Amphetamine Screen POSITIVE (NEGATIVE) U Methamphetamines Scrn NEGATIVE (NEGATIVE) U Benzodiazepines Scrn NEGATIVE (NEGATIVE) U Cocaine Metab Screen NEGATIVE (NEGATIVE) U Marijuana (THC) Screen POSITIVE (NEGATIVE) Result Diagrams: 05/09/19 19:28 05/09/19 19:28 Imaging Impressions Last 24 hrs: X-rays of the right knee show no acute osseous abnormality. WBC cell count from R knee 2610. Culture and crystals pending. Consult PN Assessment/Plan POD#: 0 Procedures: Procedures EMERGENCY DEPT VISIT (05/01/19) EMERGENCY DEPT VISIT (09/01/17) EMERGENCY DEPT VISIT (05/01/17) THER/PROPH/DIAG INJ SC/IM (05/01/19) X-RAY EXAM OF KNEE 3 (05/01/19) (1) Right knee pain SNOMED Code(s): 92199780 Code(s): M25.561 - PAIN IN RIGHT KNEE Current Visit: No Qualifiers: Chronicity: acute Qualified Code(s): M25.561 - Pain in right knee Problem List Initiated/Reviewed/Updated: Yes My Orders Last 24 Hours: My Active Orders 05/09/19 20:45 CRYSTALS,BODY FLUID [BF] Stat CULTURE BODY FLUID + SMEAR [RM] Stat Plan: R knee aspirate: Informed consent was obtained. Time out performed to ensure correct site and procedure. Using sterile technique, ~ 10ml of serosanguinous fluid was aspirated from the right knee. No purulence noted. Patient tolerated the procedure well. Fluid was sent for fluid analysis. Initial cell count shows inflammation, but infection less likely. At this time I discussed with the patient that I am concerned about the continued swelling and erythema along the medial aspect of the thigh. The initial ultrasound did show evidence of an abscess/fluid collection. The MRI report from the outside facility did not discuss this, however it is possible that the abscess was higher than the field of the MRI. The patient has been given a dose of vancomycin and Zosyn in the emergency room. His laboratory studies do show an elevated WBC count as well as elevated ESR and CRP. Blood cultures are currently pending. I believe that further imaging of the right knee /medial thigh is necessary. If abscess is noted, he may require debridement or aspiration. Will plan to get CT of the right femur tonight to look for abscess formation. Will admit to the hospital for IV abx. If CT is inconclusive, may need MRI in am to further evaluate the medial thigh. If CT shows any evidence of gas, will require urgent transfer as we do not have the capabilities to treat necrotizing fasciitis and patient would require higher level of care. Discussed with patient and family.
[2019-05-09] MEDS ORDERED: Ketorolac 30 MG/ML SDV ONE (22:27)
[2019-05-09] MEDS: Ketorolac 30 MG/ML SDV IVPUSH SCH (22:29)
--- NOTE | 2019-05-09 23:45 | CT ---
INDICATION: Infection of the right knee for 2 weeks. Increased pain and fever. Evaluate for abscess. TECHNIQUE: Noncontrast images mid pelvis to below the knee with axial, coronal and sagittal reformats. FINDINGS: Moderately large fluid collection behind the posteromedial knee likely Becker`s cyst. Some ill-defined fluid extends into the proximal margin of the gastrocnemius medial head. Strandy edema attenuation through the popliteal fossa. Some inflammation may be present in the and deep margin of the vastus medialis muscle although no definitive infiltrating fluid. Small effusion of the knee. No fluid extending into the calf. Some strandy inflammatory attenuation superficial to the medial gastrocnemius extends to the inferior field of view. No bone findings of significance. 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 Surrounding inflammation throughout the popliteal fossa. Ultrasound or a contrast MRI may help further characterize the extent of fluid is there is ongoing clinical concern. Please note that all CT scans at this facility use dose modulation, iterative reconstruction, and/or weight-based dosing when appropriate to reduce radiation dose to as low as reasonably achievable. Dictated by Jesse Purcell MD @ May 10 2019 8:05AM Signed by Dr. Jesse Purcell @ May 10 2019 8:13AM
[2019-05-10] MEDS ORDERED: Acetaminophen 500 MG Tab ONE (02:43)
[2019-05-10] MEDS ORDERED: Acetaminophen 325 MG/10.15 ML ML PO SCH (02:45)
[2019-05-10] MEDS: Piperacillin/Tazobactam 3.375 GM in Sodium Chloride 0.9% 50 ML IV SCH ×4 (02:53→19:30)
[2019-05-10] MEDS ORDERED: Acetaminophen 325 MG Tab PO SCH ×2 (03:00→20:00)
[2019-05-10] MEDS: Ketorolac 30 MG/ML SDV IVPUSH SCH ×4 (04:30→23:00)
[2019-05-10] MEDS: Lactated Ringers 1,000 ML IV SCH (08:17)
[2019-05-10] MEDS: Acetaminophen 1,000 MG in Premix Bag 1 BAG IV SCH ×2 (08:31→14:45)
--- NOTE | 2019-05-10 09:20 | PCM.SN ---
<Rosie Ray R - Last Filed: 05/10/19 09:55> - Free Text/Narrative Note: S: patient states he is starting to feel better as compared to admission last night primarily concerned with depletion of home suboxone - has f/u appt with [facility] today, mother is planning to present to that clinic and explain the patient's situation pt's mother and girlfriend are wondering if subutex (no naloxone component) is a better option for him at this point with possible upcoming surgery and requiring post-op pain medications otherwise no specific concerns O: Tmax 103.1 at 0253, currently 98.1 WBC 13.2 (12.9 on 05/09) ESR 58 (49 on 05/09) CRP 17.5 (20.20 on 05/09) blood cultures pending synovial studies not concerning for septic arthritis patient resting comfortably in bed with pillows under RLE R distal thigh continues to be diffusely tender with palpation, no obvious fluid collection or fluctuance mild overlying erythema position of comfort is 45* flexion at the knee at/ehl/gastroc 5/5, dp 2+, sensation intact distally A: R distal thigh abscess leukocytosis P: awaiting advanced imaging as ordered by Dr. Sanchez patient's mother will try to manage patient's suboxone/subutex prescription through [facility] discussed case with hospitalist as there is concern for withdrawal, appreciate their assistance will continue to monitor and discuss developing treatment recommendations with patient and family. <Luz Marina Sanchez R - Last Filed: 05/11/19 09:58> - Free Text/Narrative Note: Late entry Patient seen and examined at 1830 on 05/10/19. Patient states that he feels much better today. He has much less pain in his thigh. He denies any fever or chills. He has been out of bed to use the bathroom. He is able to move his knee better today. Vss, afeb Exam of the right lower extremity unchanged from previous exam. Erythema appears to be resolving. No discrete abscess palpated. Motion at the knee is -20 -60 with little pain in the knee. He complains of some pain in the distal medial thigh with knee motion. He has no calf tenderness. AT/EHL/gastroc 5/5. Sensation grossly intact. DP/PT pulses 2+. Aspirate of the distal thigh abscess performed in radiology shows gram-positive cocci. Knee aspirate is currently pending. Blood cultures are also pending. Echo cardiogram was done today and this has not yet been read. Assessment: R medial gastroc intramuscular abscess (per recent MRI with review with radiologist) Plan: At this time the patient appears to be improving with IV antibiotics. His CRP did decrease slightly, however his WBC count elevation persists. We will continue with the IV antibiotics. Possible mobilization and physical therapy tomorrow. Will obtain new laboratory studies in the morning. Patient is comfortable with the plan.
[2019-05-10] MEDS: VANCOMYCIN/WATER FOR INJ (PEG) 1.5 GM in Premix Bag 1 BAG IV SCH ×2 (09:59→16:37)
--- NOTE | 2019-05-10 11:05 | PCM.CONS ---
H&P History of Present Illness - General Date of Service: 05/10/19 Admit Problem/Dx: Admission Diagnosis/Problem Admission Diagnosis/Problem Cellulitis and abscess of lower extremity Source of Information: Patient History Limitations: Reports: No Limitations - History of Present Illness Initial Comments - Free Text/Narative: This 28 year old male with pmh of heroin abuse, recent placement on Suboxone after inpatient treatment, presented to the ED with complaints of fevers and R medial thigh pain. He initially saw Orthopedics last week and was transferred to [place] due to concerns of abscess to thigh and no MD available for drainage in OR. He was kept overnight and given IVFs, from patient report he was then sent home. Over the weekend he continued to have fevers, reach 103 with increasing pain to his R thigh. He denies trauma or injury. He denies injection of substances into his thigh. He reports he was injecting his Suboxone up until approximately 3 weeks ago. He has since stopped this and is using the film appropriately. He was placed in inpatient rehab for heroine addiction in January and was release in March when he started Suboxone. He follows with [facility] for Suboxone therapy here in [place]. He is anxious because he has run out of his Suboxone and missed his appointment yesterday as he was in the ED. He denies chest pain or SOB. No abdominal pain. He was recently treated for a abscess tooth with penicillin VK. He reports some diarrhea after antibiotics given in [place]. In the ED leukocytosis noted to be 12,000. BC obtained and he was treated with Vancomycin and Zosyn. Dr Sanchez aspirated knee and admitted patient for possible abscess to R thigh. Hospitalist service consulted for medical management with Suboxone. Right Knee Pain Score (Numeric/FACES): 2 - Related Data Allergies/Adverse Reactions: Allergies Allergy/AdvReac Type Severity Reaction Status Date / Time No Known Allergies Allergy Verified 05/09/19 19:09 Home Medications: Home Meds Buprenorphine HCl/Naloxone HCl [Suboxone 12 mg-3 mg Sl Film] 12 mg PO DAILY 05/13 [History] busPIRone [Buspar] 15 mg PO TID 05/01/19 [History] Acetaminophen 1,000 mg PO ASDIRECTED 05/09/19 [History] Clindamycin HCl [Cleocin] 300 mg PO QID 05/09/19 [History] Ibuprofen 800 mg PO ASDIRECTED 05/09/19 [History] Past Medical History - Past Health History Medical/Surgical History: Denies Medical/Surgical History HEENT History: Reports: None Cardiovascular History: Reports: None. Denies: CAD, Hypertension Respiratory History: Reports: Asthma Gastrointestinal History: Reports: None Genitourinary History: Reports: None Musculoskeletal History: Reports: Fracture (R hand) Psychiatric History: Reports: Addiction (heroin), Anxiety, Depression Endocrine/Metabolic History: Reports: None. Denies: Diabetes, Type II - Infectious Disease History Infectious Disease History: Reports: Chicken Pox, Hepatitis C - Past Surgical History Head Surgeries/Procedures: Reports: None HEENT Surgical History: Reports: None Respiratory Surgical History: Reports: None Neurological Surgical History: Reports: None Musculoskeletal Surgical History: Reports: Other (See Below) Other Musculoskeletal Surgeries/Procedures:: Hand surgery Dermatological Surgical History: Reports: None Social & Family History - Family History Family Medical History: Noncontributory HEENT: Reports: None - Tobacco Use Smoking Status *Q: Current Every Day Smoker Years of Tobacco use: 5 Packs/Tins Daily: 0.5 Used Tobacco, but Quit: No Second Hand Smoke Exposure: Yes - Caffeine Use Caffeine Use: Reports: Coffee, Soda - Alcohol Use Alcohol Use History: No - Recreational Drug Use Recreational Drug Use: Yes Drug Use in Last 12 Months: Yes Recreational Drug Type: Reports: Heroin, Marijuana/Hashish Recreational Drug Use Frequency: Monthly Recreational Drug Last Use: t-21 - Living Situation & Occupation Occupation: Unemployed H&P Review of Systems - Review of Systems: Review Of Systems: See Below General: Reports: Fever, Chills, Malaise HEENT: Reports: No Symptoms. Denies: Headaches, Sinus Congestion, Sore Throat Pulmonary: Reports: No Symptoms. Denies: Shortness of Breath Cardiovascular: Reports: No Symptoms. Denies: Chest Pain, Lightheadedness Gastrointestinal: Reports: Diarrhea. Denies: Abdominal Pain, Black Stool, Bloody Stool Genitourinary: Reports: No Symptoms. Denies: Dysuria, Frequency, Burning Musculoskeletal: Reports: Leg Pain (R thigh pain and R knee pain with movement) Skin: Reports: Erythema (R thigh) Neurological: Reports: No Symptoms Hematologic/Lymphatic: Reports: No Symptoms Immunologic: Reports: No Symptoms Exam - Exam Exam: See Below - Vital Signs Vital Signs: Last Vital Signs Temp 98.1 F 05/10/19 08:00 Pulse 70 05/10/19 08:00 Resp 20 05/10/19 08:00 BP 120/57 L 05/10/19 08:00 Pulse Ox 98 05/10/19 08:00 Weight: 90.401 kg - Exam General: Alert, Oriented Neck: Supple, Trachea Midline Lungs: Clear to Auscultation, Normal Respiratory Effort Cardiovascular: Regular Rate, Regular Rhythm, Normal S1, Normal S2. No: Systolic Murmur GI/Abdominal Exam: Normal Bowel Sounds, Soft, Non-Tender Extremities: No Pedal Edema, Normal Capillary Refill, Redness (R medial thigh. Aspiration site to R lateral knee covered with bandaid.). No: Normal Range of Motion (decreased due to pain on R knee) Neuro Extensive - Mental Status: Alert, Oriented x3 Neuro Extensive - Motor, Sensory, Reflexes: CN II-XII Intact, Normal Gait Psychiatric: Anxious, Agitated, Withdrawal Symptoms - Patient Data Lab Results Last 24 hrs: Laboratory Results - last 24 hr 05/09/19 05/09/19 05/09/19 Range/Units 19:28 19:28 19:28 WBC 12.90 H (4.0-11.0) K/uL RBC 4.30 L (4.50-5.90) M/uL Hgb 11.9 L (13.0-17.0) g/dL Hct 35.4 L (38.0-50.0) % MCV 82.3 (80.0-98.0) fL MCH 27.7 (27.0-32.0) pg MCHC 33.6 (31.0-37.0) g/dL RDW Std Deviation 39.8 (28.0-62.0) fl RDW Coeff of Michele 13 (11.0-15.0) % Plt Count 298 (150-400) K/uL MPV 9.10 (7.40-12.00) fL Neut % (Auto) 70.9 (48.0-80.0) % Lymph % (Auto) 14.8 L (16.0-40.0) % [place] % (Auto) 12.2 (0.0-15.0) % Eos % (Auto) 1.9 (0.0-7.0) % Baso % (Auto) 0.2 (0.0-1.5) % Neut # (Auto) 9.2 H (1.4-5.7) K/uL Lymph # (Auto) 1.9 (0.6-2.4) K/uL [place] # (Auto) 1.6 H (0.0-0.8) K/uL Eos # (Auto) 0.2 (0.0-0.7) K/uL Baso # (Auto) 0.0 (0.0-0.1) K/uL Nucleated RBC % 0.0 /100WBC Nucleated RBCs # 0 K/uL ESR 49 H (0-14) mm/hr Sodium 136 (136-148) mmol/L Potassium 3.4 L (3.5-5.1) mmol/L Chloride 101 (98-107) mmol/L Carbon Dioxide 26.7 (21.0-32.0) mmol/L BUN 10 (7.0-18.0) mg/dL Creatinine 0.8 (0.8-1.3) mg/dL Est Cr Clr Drug Dosing 149.54 mL/min Estimated GFR (MDRD) > 60.0 ml/min Glucose 149 H (74-106) mg/dL Calcium 8.3 L (8.5-10.1) mg/dL Total Bilirubin 0.2 (0.2-1.0) mg/dL AST 14 L (15-37) IU/L ALT 14 (14-63) IU/L Alkaline Phosphatase 88 (46-116) U/L C-Reactive Protein (0.00-0.90) mg/dL Total Protein 7.3 (6.4-8.2) g/dL Albumin 2.6 L (3.4-5.0) g/dL Globulin 4.7 H (2.6-4.0) g/dL Albumin/Globulin Ratio 0.6 L (0.9-1.6) Urine Color Urine Appearance Urine pH (5.0-8.0) Ur Specific [place] (1.001-1.035) Urine Protein (NEGATIVE) mg/dL Urine Glucose (UA) (NEGATIVE) mg/dL Urine Ketones (NEGATIVE) mg/dL Urine Occult Blood (NEGATIVE) Urine Nitrite (NEGATIVE) Urine Bilirubin (NEGATIVE) Urine Urobilinogen (<2.0) EU/dL Ur Leukocyte Esterase (NEGATIVE) Urine RBC (0-2/HPF) Urine WBC (0-5/HPF) Ur Epithelial Cells (NONE-FEW) Urine Bacteria (NEGATIVE) Fluid Type Fluid Color Fluid Appearance Fluid WBC K/uL Fluid RBC M/uL Fluid Mononuclear Cell % Fl Polymorphonucl Cell % Fluid Crystals Urine Opiates Screen (NEGATIVE) Ur Oxycodone Screen (NEGATIVE) Urine Methadone Screen (NEGATIVE) Ur Barbiturates Screen (NEGATIVE) Ur Phencyclidine Scrn (NEGATIVE) Ur Amphetamine Screen (NEGATIVE) U Methamphetamines Scrn (NEGATIVE) U Benzodiazepines Scrn (NEGATIVE) U Cocaine Metab Screen (NEGATIVE) U Marijuana (THC) Screen (NEGATIVE) 05/09/19 05/09/19 05/09/19 Range/Units 19:28 20:45 20:45 WBC (4.0-11.0) K/uL RBC (4.50-5.90) M/uL Hgb (13.0-17.0) g/dL Hct (38.0-50.0) % MCV (80.0-98.0) fL MCH (27.0-32.0) pg MCHC (31.0-37.0) g/dL RDW Std Deviation (28.0-62.0) fl RDW Coeff of Michele (11.0-15.0) % Plt Count (150-400) K/uL MPV (7.40-12.00) fL Neut % (Auto) (48.0-80.0) % Lymph % (Auto) (16.0-40.0) % [place] % (Auto) (0.0-15.0) % Eos % (Auto) (0.0-7.0) % Baso % (Auto) (0.0-1.5) % Neut # (Auto) (1.4-5.7) K/uL Lymph # (Auto) (0.6-2.4) K/uL [place] # (Auto) (0.0-0.8) K/uL Eos # (Auto) (0.0-0.7) K/uL Baso # (Auto) (0.0-0.1) K/uL Nucleated RBC % /100WBC Nucleated RBCs # K/uL ESR (0-14) mm/hr Sodium (136-148) mmol/L Potassium (3.5-5.1) mmol/L Chloride (98-107) mmol/L Carbon Dioxide (21.0-32.0) mmol/L BUN (7.0-18.0) mg/dL Creatinine (0.8-1.3) mg/dL Est Cr Clr Drug Dosing mL/min Estimated GFR (MDRD) ml/min Glucose (74-106) mg/dL Calcium (8.5-10.1) mg/dL Total Bilirubin (0.2-1.0) mg/dL AST (15-37) IU/L ALT (14-63) IU/L Alkaline Phosphatase (46-116) U/L C-Reactive Protein 20.20 H (0.00-0.90) mg/dL Total Protein (6.4-8.2) g/dL Albumin (3.4-5.0) g/dL Globulin (2.6-4.0) g/dL Albumin/Globulin Ratio (0.9-1.6) Urine Color Urine Appearance Urine pH (5.0-8.0) Ur Specific [place] (1.001-1.035) Urine Protein (NEGATIVE) mg/dL Urine Glucose (UA) (NEGATIVE) mg/dL Urine Ketones (NEGATIVE) mg/dL Urine Occult Blood (NEGATIVE) Urine Nitrite (NEGATIVE) Urine Bilirubin (NEGATIVE) Urine Urobilinogen (<2.0) EU/dL Ur Leukocyte Esterase (NEGATIVE) Urine RBC (0-2/HPF) Urine WBC (0-5/HPF) Ur Epithelial Cells (NONE-FEW) Urine Bacteria (NEGATIVE) Fluid Type SYN SYN Fluid Color RED Fluid Appearance CLOUDY Fluid WBC 2.61 K/uL Fluid RBC 0.13 M/uL Fluid Mononuclear Cell 39.4 % Fl Polymorphonucl Cell 60.6 % Fluid Crystals NONE SEEN Urine Opiates Screen (NEGATIVE) Ur Oxycodone Screen (NEGATIVE) Urine Methadone Screen (NEGATIVE) Ur Barbiturates Screen (NEGATIVE) Ur Phencyclidine Scrn (NEGATIVE) Ur Amphetamine Screen (NEGATIVE) U Methamphetamines Scrn (NEGATIVE) U Benzodiazepines Scrn (NEGATIVE) U Cocaine Metab Screen (NEGATIVE) U Marijuana (THC) Screen (NEGATIVE) 05/09/19 05/09/19 05/10/19 Range/Units 20:50 20:50 06:05 WBC 13.22 H (4.0-11.0) K/uL RBC 4.09 L (4.50-5.90) M/uL Hgb 11.3 L (13.0-17.0) g/dL Hct 33.8 L (38.0-50.0) % MCV 82.6 (80.0-98.0) fL MCH 27.6 (27.0-32.0) pg MCHC 33.4 (31.0-37.0) g/dL RDW Std Deviation 40.3 (28.0-62.0) fl RDW Coeff of Michele 13 (11.0-15.0) % Plt Count 309 (150-400) K/uL MPV 8.90 (7.40-12.00) fL Neut % (Auto) 67.7 (48.0-80.0) % Lymph % (Auto) 18.5 (16.0-40.0) % [place] % (Auto) 12.1 (0.0-15.0) % Eos % (Auto) 1.3 (0.0-7.0) % Baso % (Auto) 0.4 (0.0-1.5) % Neut # (Auto) 9.0 H (1.4-5.7) K/uL Lymph # (Auto) 2.5 H (0.6-2.4) K/uL [place] # (Auto) 1.6 H (0.0-0.8) K/uL Eos # (Auto) 0.2 (0.0-0.7) K/uL Baso # (Auto) 0.1 (0.0-0.1) K/uL Nucleated RBC % 0.0 /100WBC Nucleated RBCs # 0 K/uL ESR 58 H (0-14) mm/hr Sodium (136-148) mmol/L Potassium (3.5-5.1) mmol/L Chloride (98-107) mmol/L Carbon Dioxide (21.0-32.0) mmol/L BUN (7.0-18.0) mg/dL Creatinine (0.8-1.3) mg/dL Est Cr Clr Drug Dosing mL/min Estimated GFR (MDRD) ml/min Glucose (74-106) mg/dL Calcium (8.5-10.1) mg/dL Total Bilirubin (0.2-1.0) mg/dL AST (15-37) IU/L ALT (14-63) IU/L Alkaline Phosphatase (46-116) U/L C-Reactive Protein (0.00-0.90) mg/dL Total Protein (6.4-8.2) g/dL Albumin (3.4-5.0) g/dL Globulin (2.6-4.0) g/dL Albumin/Globulin Ratio (0.9-1.6) Urine Color YELLOW Urine Appearance CLEAR Urine pH 6.0 (5.0-8.0) Ur Specific [place] <= 1.005 (1.001-1.035) Urine Protein NEGATIVE (NEGATIVE) mg/dL Urine Glucose (UA) NEGATIVE (NEGATIVE) mg/dL Urine Ketones NEGATIVE (NEGATIVE) mg/dL Urine Occult Blood TRACE-INTACT H (NEGATIVE) Urine Nitrite NEGATIVE (NEGATIVE) Urine Bilirubin NEGATIVE (NEGATIVE) Urine Urobilinogen 0.2 (<2.0) EU/dL Ur Leukocyte Esterase NEGATIVE (NEGATIVE) Urine RBC NONE SEEN (0-2/HPF) Urine WBC NONE SEEN (0-5/HPF) Ur Epithelial Cells NOT SEEN (NONE-FEW) Urine Bacteria RARE (NEGATIVE) Fluid Type Fluid Color Fluid Appearance Fluid WBC K/uL Fluid RBC M/uL Fluid Mononuclear Cell % Fl Polymorphonucl Cell % Fluid Crystals Urine Opiates Screen NEGATIVE (NEGATIVE) Ur Oxycodone Screen NEGATIVE (NEGATIVE) Urine Methadone Screen NEGATIVE (NEGATIVE) Ur Barbiturates Screen NEGATIVE (NEGATIVE) Ur Phencyclidine Scrn NEGATIVE (NEGATIVE) Ur Amphetamine Screen POSITIVE (NEGATIVE) U Methamphetamines Scrn NEGATIVE (NEGATIVE) U Benzodiazepines Scrn NEGATIVE (NEGATIVE) U Cocaine Metab Screen NEGATIVE (NEGATIVE) U Marijuana (THC) Screen POSITIVE (NEGATIVE) Result Diagrams: 05/10/19 06:05 05/09/19 19:28 Segun Results Last 24 hrs: Microbiology 05/09/19 20:45 Gram Stain - Final Joint / Synovial Fluid - Knee, Right Consult PN Assessment/Plan Procedures: Procedures EMERGENCY DEPT VISIT (05/01/19) EMERGENCY DEPT VISIT (09/01/17) EMERGENCY DEPT VISIT (05/01/17) EXTREMITY STUDY (05/06/19) THER/PROPH/DIAG INJ SC/IM (05/01/19) US COMPL JOINT R-T W/IMG (05/06/19) X-RAY EXAM OF KNEE 3 (05/01/19) (1) Cellulitis SNOMED Code(s): 289498761 Code(s): L03.90 - CELLULITIS, UNSPECIFIED Current Visit: Yes Qualifiers: Site of cellulitis: extremity Site of cellulitis of extremity: lower extremity Laterality: right Qualified Code(s): L03.115 - Cellulitis of right lower limb (2) Right knee pain SNOMED Code(s): 03934812 Code(s): M25.561 - PAIN IN RIGHT KNEE Current Visit: Yes Qualifiers: Chronicity: acute Qualified Code(s): M25.561 - Pain in right knee (3) History of intravenous drug abuse SNOMED Code(s): 07137307573851047 Code(s): F19.11 - OTHER PSYCHOACTIVE SUBSTANCE ABUSE, IN REMISSION Current Visit: Yes Problem List Initiated/Reviewed/Updated: Yes My Orders Last 24 Hours: My Active Orders 05/10/19 10:15 Nicotine [Habitrol] 14 mg TRDERM DAILY 05/10/19 10:30 Buprenorphine HCl/Naloxone HCl [Suboxone 12 mg-3 mg Sl Film] 0 mg SL DAILY 05/10/19 11:04 Echo Comp wo Cont [US] Urgent Plan: This 28 year old male admitted with R thigh cellulitis with concern for abscess , with pmh of heroin IV use as well as recent Suboxone injection as well. 1. R thigh cellulitis: Per Orthopedic management. Agree with antibiotics. BC pending. Due to drug use and fevers will add ECHO to assess for vegetation. No murmur on exam, so far BC no growth. For pain, will reorder Suboxone now. Tylenol and Motrin acceptable. 2. Hx IV drug abuse: Instructed to still obtain prescription for Suboxone from clinic as we are unable to provide on discharge. VTE prophylaxis: Would recommended when deemed appropriate by Orthopedics.
[2019-05-10] MEDS ORDERED: Gadobenate Dimeglumine 529 MG/ML 20 ML SDV IVPUSH STA (11:15)
[2019-05-10] MEDS: Nicotine 14 MG/24 Hr Patch TRDERM SCH (12:23)
--- NOTE | 2019-05-10 12:41 | MR ---
EXAMINATION: MRI of the right femur with and without contrast HISTORY: Evaluate abscess COMPARISON: CT dated 05/09/2019 TECHNIQUE: Multiplanar and multisequence imaging obtained of the right femur before and following the administration of 17 mL of MultiHance. FINDINGS: There is a 5.7 x 4.1 cm heterogeneous fluid collection within the region of the origin of the medial gastrocnemius. There is an adjacent Becker's cyst which appears separate. There is mild edema and enhancement along the gastrocnemius musculature however there is no no significant proximal enhancement along the fascial planes. There is a trace joint fluid with minimal enhancement of the synovium, likely reactive. There is a trace enhancement and edema within the adjacent medial femoral condyle. ACL and the PCL appear intact. IMPRESSION: 1. There is a 5.7 x 4.1 cm collection at the origin of the medial gastrocnemius, likely an intramuscular abscess. There is likely adjacent cellulitis and early osteomyelitis of the medial femoral condyle is not excluded. 2. No definite enhancement along the fascial planes to suggest fasciitis at this time. 3. Small joint effusion and Becker's cyst.
[2019-05-10] MEDS: NALOXONE 2 MG SL SCH (13:05)
[2019-05-10] MEDS: BUPRENORPHINE SL SCH (13:05)
[2019-05-10] MEDS: Acetaminophen 500 MG Tab PO SCH (19:30)
[2019-05-11] MEDS: VANCOMYCIN/WATER FOR INJ (PEG) 1.5 GM in Premix Bag 1 BAG IV SCH ×2 (00:45→09:51)
[2019-05-11] MEDS: Piperacillin/Tazobactam 3.375 GM in Sodium Chloride 0.9% 50 ML IV SCH ×2 (02:20→09:00)
[2019-05-11] MEDS: Acetaminophen 500 MG Tab PO SCH ×2 (02:22→09:01)
[2019-05-11] MEDS: Lactated Ringers 1,000 ML IV SCH (04:00)
[2019-05-11] MEDS: Ketorolac 30 MG/ML SDV IVPUSH SCH ×2 (04:45→09:53)
--- NOTE | 2019-05-11 08:38 | US ---
EXAMINATION: Ultrasound guided right knee abscess aspiration HISTORY: Abscess COMPARISON: MRI from the same day TECHNIQUE: Procedure, risks, and benefits were discussed with the patient. Written informed consent was obtained. Overlying area was sterilely prepped and draped. 1% lidocaine was administered for local anesthesia. Using ultrasound guidance an 18-gauge needle was advanced into the hypoechoic collection near the origin of the medial gastrocnemius. Approximately 1 cc of thick purulent blood-tinged fluid was aspirated. Additional fluid was unable to be recovered. A portion was placed in a culture tube. Patient tolerated procedure well. No immediate complications. IMPRESSION: 1. Ultrasound-guided right knee abscess drainage yielding a small amount of purulent appearing fluid.
[2019-05-11] MEDS: Nicotine 14 MG/24 Hr Patch TRDERM SCH (09:05)
[2019-05-11] MEDS: NALOXONE 2 MG SL SCH (10:02)
[2019-05-11] MEDS: BUPRENORPHINE SL SCH (10:02)
[2019-05-11 11:40] VITALS: BP 105/59
--- NOTE | 2019-05-11 11:58 | PCM.PN ---
- General Info Date of Service: 05/11/19 Functional Status: Reports: Pain Controlled - Review of Systems General: Reports: Fever, Chills HEENT: Reports: No Symptoms Pulmonary: Reports: No Symptoms. Denies: Shortness of Breath Cardiovascular: Reports: No Symptoms. Denies: Chest Pain Gastrointestinal: Reports: No Symptoms Genitourinary: Reports: No Symptoms Musculoskeletal: Reports: Leg Pain Neurological: Reports: No Symptoms Psychiatric: Reports: No Symptoms Systems Review Comment:: Patient sitting up in bed. States RLE pain is improved. Able to ambulate to bathroom and WBAT on RLE. States knee is easier to move as well. Had aspirate done yesterday in radiology--+ for G+ cocci, culture pending. Last night had elevation of temp to 101 despite Tylenol and Toradol. Today feels chills as well. Today has noted increased size of nodule on right side of neck where he injects suboxone. Denies other symptoms. - Patient Data Vitals - Most Recent: Last Vital Signs Temp 99.9 F 05/11/19 10:48 Pulse 86 05/11/19 07:25 Resp 16 05/11/19 07:25 BP 101/66 05/11/19 07:25 Pulse Ox 95 05/11/19 07:25 Weight - Most Recent: 90.401 kg I&O - Last 24 Hours: Intake & Output 05/10/19 05/11/19 05/11/19 22:59 06:59 14:59 Intake Total 50 2393 Output Total 1700 Balance 50 693 Lab Results Last 24 Hours: Laboratory Results - last 24 hr 05/10/19 05/11/19 05/11/19 Range/Units 06:05 04:55 04:55 WBC 15.12 H (4.0-11.0) K/uL RBC 3.99 L (4.50-5.90) M/uL Hgb 11.1 L (13.0-17.0) g/dL Hct 33.7 L (38.0-50.0) % MCV 84.5 (80.0-98.0) fL MCH 27.8 (27.0-32.0) pg MCHC 32.9 (31.0-37.0) g/dL RDW Std Deviation 41.1 (28.0-62.0) fl RDW Coeff of Michele 13 (11.0-15.0) % Plt Count 310 (150-400) K/uL MPV 9.30 (7.40-12.00) fL Neut % (Auto) 65.2 (48.0-80.0) % Lymph % (Auto) 21.0 (16.0-40.0) % [place] % (Auto) 11.5 (0.0-15.0) % Eos % (Auto) 1.9 (0.0-7.0) % Baso % (Auto) 0.4 (0.0-1.5) % Neut # (Auto) 9.9 H (1.4-5.7) K/uL Lymph # (Auto) 3.2 H (0.6-2.4) K/uL [place] # (Auto) 1.7 H (0.0-0.8) K/uL Eos # (Auto) 0.3 (0.0-0.7) K/uL Baso # (Auto) 0.1 (0.0-0.1) K/uL Nucleated RBC % 0.0 /100WBC Nucleated RBCs # 0 K/uL C-Reactive Protein 17.50 H 19.80 H (0.00-0.90) mg/dL Segun Results Last 24 Hours: Microbiology 05/09/19 20:45 Gram Stain - Final Joint / Synovial Fluid - Knee, Right Body Fluid Culture - Preliminary NO GROWTH AFTER 1 DAY 05/11/19 06:30 Anaerobic Blood Culture - Final Blood - Venous - Lab Draw 05/11/19 05:00 Anaerobic Blood Culture - Final Blood - Venous 05/09/19 19:43 Aerobic Blood Culture - Preliminary Blood - Venous - Lab Draw NO GROWTH AFTER 1 DAY Anaerobic Blood Culture - Preliminary NO GROWTH AFTER 1 DAY 05/09/19 19:28 Aerobic Blood Culture - Preliminary Blood - Venous NO GROWTH AFTER 1 DAY Anaerobic Blood Culture - Preliminary NO GROWTH AFTER 1 DAY 05/10/19 15:53 Gram Stain - Preliminary Leg, Right Med Orders - Current: Current Medications Acetaminophen (Tylenol Extra Strength) 1,000 mg PO Q6H [facility] Last Admin: 05/11/19 09:01 Dose: 1,000 mg Piperacillin Sod/Tazobactam (Sod 3.375 gm/ Sodium Chloride) 50 mls @ 100 mls/ hr IV Q6H [facility] Last Admin: 05/11/19 09:00 Dose: 100 mls/hr Lactated Ringer's (Ringers, Lactated) 1,000 mls @ 100 mls/hr IV ASDIRECTED [facility] Last Admin: 05/11/19 04:00 Dose: 100 mls/hr Vancomycin HCl 1.5 gm/ Premix 300 mls @ 200 mls/hr IV Q8H [facility] Last Admin: 05/11/19 09:51 Dose: 200 mls/hr Ketorolac Tromethamine (Toradol) 30 mg IVPUSH Q6H [facility] Last Admin: 05/11/19 09:53 Dose: 30 mg Nicotine (Habitrol) 14 mg TRDERM DAILY [facility] Last Admin: 05/11/19 09:05 Dose: 14 mg Buprenorphine 8 Mg/ (Naloxone 2 Mg) 0 mg SL DAILY [facility] Last Admin: 05/11/19 10:02 Dose: 12 mg Vancomycin HCl (Pharmacy To Dose - Vancomycin) 1 dose .XX ASDIRECTED [facility] Discontinued Medications Acetaminophen (Tylenol) 1,000 mg PO Q6H [facility] Last Admin: 05/10/19 02:52 Dose: Not Given Acetaminophen (Tylenol Extra Strength) Confirm Administered Dose 1,000 mg .ROUTE .STK-MED ONE Stop: 05/10/19 02:44 Last Admin: 05/10/19 02:53 Dose: 1,000 mg Acetaminophen (Tylenol) 1,000 mg PO Q6H [facility] Last Admin: 05/10/19 03:02 Dose: Not Given Gadobenate Dimeglumine (Multihance) 17 ml IVPUSH ONETIME STA Stop: 05/10/19 11:16 Last Admin: 05/10/19 11:16 Dose: 17 ml Sodium Chloride (Normal Saline) 1,000 mls @ 999 mls/hr IV .Bolus ONE Stop: 05/09/19 20:21 Last Admin: 05/09/19 19:33 Dose: 999 mls/hr Vancomycin HCl 1 gm/ Sodium (Chloride) 250 mls @ 166 mls/hr IV ONETIME ONE Stop: 05/09/19 21:10 Last Admin: 05/09/19 20:08 Dose: 166 mls/hr Piperacillin Sod/Tazobactam (Sod 3.375 gm/ Sodium Chloride) 50 mls @ 100 mls/ hr IV ONETIME ONE Stop: 05/09/19 20:29 Last Admin: 05/09/19 21:52 Dose: 100 mls/hr Sodium Chloride (Normal Saline) Confirm Administered Dose 250 mls @ as directed .ROUTE .STK-MED ONE Stop: 05/09/19 19:58 Last Admin: 05/09/19 20:09 Dose: Not Given Acetaminophen 1,000 mg/ Premix 100 mls @ 400 mls/hr IV Q6H [facility] Stop: 05/10/19 14:14 Last Admin: 05/10/19 14:45 Dose: 400 mls/hr Ketorolac Tromethamine (Toradol) Confirm Administered Dose 30 mg .ROUTE .STK- MED ONE Stop: 05/09/19 22:28 Last Admin: 05/09/19 22:42 Dose: Not Given Vancomycin HCl (Vancomycin) Confirm Administered Dose 1 gm .ROUTE .STK-MED ONE Stop: 05/09/19 19:57 Last Admin: 05/09/19 20:09 Dose: Not Given - Exam General: Alert, Oriented HEENT: Pupils Equal Neck: Supple Lungs: Normal Respiratory Effort Cardiovascular: Regular Rate Neurological: No New Focal Deficit Psy/Mental Status: Alert, Normal Affect, Normal Mood Physical Findings Comments:: Exam of right LE shows less erythema over medial thigh. Fullness present, but no discrete abscess noted. ROM of knee -5-80 degrees with minimal pain, no joint effusion. No pain with hip ROM. No calf TTP. AT/EHL/gastroc 5/5. Sensation intact. DP 2+. - Problem List & Annotations (1) Right knee pain SNOMED Code(s): 58667496 Code(s): M25.561 - PAIN IN RIGHT KNEE Status: Acute Current Visit: Yes Qualifiers: Chronicity: acute Qualified Code(s): M25.561 - Pain in right knee - Problem List Review Problem List Initiated/Reviewed/Updated: Yes - My Orders Last 24 Hours: My Active Orders 05/10/19 15:53 CULTURE WOUND [RM] Routine GRAM STAIN [RM] Routine 05/10/19 20:00 Acetaminophen [Tylenol Extra Strength] 1,000 mg PO Q6H 05/10/19 Dinner Regular Diet [DIET] 05/11/19 04:26 Blood Culture x2 Reflex Set [OM.PC] Stat 05/11/19 05:00 CULTURE BLOOD [BC] Stat 05/11/19 06:30 CULTURE BLOOD [BC] Stat 05/11/19 15:30 VANCOMYCIN TROUGH [CHEM] Routine 05/13/19 05:11 BASIC METABOLIC PANEL,BMP [CHEM] AM - Plan Plan:: 1. Initial BC negative, new BC obtained last night during elevated temp currently pending 2. R knee aspirate negative 3. R abscess aspriate + for G+ cocci, culture pending 4. Vanco/Zosyn 5. new R neck nodule at injection site--? source of new infection, will need further workup 6. Transthoracic echo negative 7. Discussed with patient and family that I am concerned about the elevation of WBC, CRP, and ESR along with the elevated temp. This could be due to R medial gastroc intramuscular abscess, but clinically he appears to be improving. The MRI was reviewed with the radiologist and stranding around the popliteal artery is also noted. Also, close proximity to Becker's cyst. With his increased temp and labs and improvement in the RLE pain, I am concerned about another source of infection. The abscess is quite close to the popliteal artery and with the degree of inflammation around it, I am hesitant to perform I&D without vascular surgeon. I am not recommending I&D at this time however because the patient appears to be improving clinically. This patient has a very complex medical condition. I am recommending referral to a higher level of care to a facility with infectious disease and ability to do CARMELO if indicated. I discussed the patient with the hospitalist at [facility] in [place]. She agrees to accept the patient. I will discuss the case with the area operations manager orthopedic surgeon as well. I discussed the plan with the patient and family and they agree with the transfer. He will be transported by ambulance due to the need to monitor VS and continuous fluids.
--- NOTE | 2019-05-13 17:42 | ECHO ---
The echocardiogram report has been seen in this patient's EMR (Electronic Medical Record) in the Reports section. The echocardiogram report has been scanned into PACS and can be seen there as well. CONNOR
== END 2019-05-11 13:25 ==
LOC: MW.ED 18:47 → MW.MS 22:16 → EEVIPCON 22:16
PROVIDERS: ADMIT Orthopaedic Surgery; ATTEND Orthopaedic Surgery
DX: L03.115 Cellulitis of right lower limb (principal); L02.415 Cutaneous abscess of right lower limb; R50.9 Fever, unspecified; M79.651 Pain in right thigh; M25.561 Pain in right knee; J45.909 Unspecified asthma, uncomplicated; F41.9 Anxiety disorder, unspecified; F17.210 Nicotine dependence, cigarettes, uncomplicated; F19.11 Other psychoactive substance abuse, in remission; Z79.891 Long term (current) use of opiate analgesic; Z79.899 Other long term (current) drug therapy; Z79.2 Long term (current) use of antibiotics; Z79.1 Long term (current) use of non-steroidal anti-inflammatories (NSAID)
CPT/HCPCS: 36415; 71045; 73562; 73700; 73720; 75989; 76942; 80053; 80305; 81001; 85025; 85652; 86140; 87040; 87070; 87077; 87186; 87205; 89050; 89060; 93306; 96361; 96365; 96366; 96367; 96375; 99285; A4217; A9270; A9577; J0131; J1885; J2543; J3370; J7040; J7050; J7120; 96376; G0378

== ENCOUNTER 2019-08-07 15:17 | Emergency (ER) | payer MEDICAID ==
[2019-08-07] MEDS ORDERED: Sodium Chloride 0.9% 2.5 ML Syringe FLUSH PRN (15:45)
[2019-08-07] MEDS ORDERED: Sodium Chloride 0.9% 10 ML Syringe FLUSH PRN (15:45)
[2019-08-07] MEDS ORDERED: Piperacillin/Tazobactam 3.375 GM in Sodium Chloride 0.9% 50 ML IV ONE (15:45)
[2019-08-07] MEDS ORDERED: Ketorolac 30 MG/ML SDV IVPUSH ONE (15:46)
[2019-08-07] MEDS ORDERED: Diphtheria,Pertussis(Acell),Tetanus Vaccine 0.5 ML Syringe IM ONE (15:49)
--- NOTE | 2019-08-07 15:49 | EDM.PDOC ---
ED HPI GENERAL MEDICAL PROBLEM - General Chief Complaint: Skin Complaint Stated Complaint: RASH Time Seen by Provider: 08/07/19 15:34 - History of Present Illness INITIAL COMMENTS - FREE TEXT/NARRATIVE: HISTORY AND PHYSICAL: History of present illness: The patient is a 28-year-old male who is unsure of his last tetanus shot and presents with complaints of a cat bite to his right index finger that occurred at 6 PM last evening, approximately 22 hours ago. The patient says the kidneys his and it is healthy and he brought it into an environment where there was another dog and a cat got scared and started scratching him on his left forearm and hand and then it eventually bit him on the right index finger. Initially he had pain at the area but there was no redness or swelling and over the last evening and throughout today it has increased in swelling and redness and now he has having streaking up his arm. He has no systemic complaints of fever chills nausea vomiting chest pain or shortness of breath. The patient is right- hand dominant and says he can make a fist and move his fingers, more particularly can move his right index finger but there is a lot of pain and pressure due to the swelling. He has not noticed any drainage from the area. Review of systems: As per history of present illness and below otherwise all systems reviewed and negative. Past medical history: As per history of present illness and as reviewed below otherwise noncontributory. Surgical history: As per history of present illness and as reviewed below otherwise noncontributory. Social history: No reported history of drug or alcohol abuse. Family history: As per history of present illness and as reviewed below otherwise noncontributory. Physical exam: General: Well-developed well-nourished man who is nontoxic and is eating a pop tart when I entered the room. Vital signs are noted by me HEENT: Atraumatic, normocephalic, negative for conjunctival pallor or scleral icterus, mucous membranes moist, throat clear, neck supple, nontender, trachea midline. Lungs: Clear to auscultation, breath sounds equal bilaterally, chest nontender. Heart: S1S2, regular and rhythm no overt murmurs Abdomen: Soft, nondistended, nontender. NABS Pelvis: Deferred Genitourinary: Deferred. Rectal: Deferred. Extremities: Atraumatic and full range of motion of all extremities except for the left forearm where there are superficial scratches seen at the distal bursal forearm extending to the distal hand without soft tissue swelling erythema ecchymosis or tenderness and the right hand. At the right hand there is diffuse erythema and soft tissue swelling originating from the proximal phalanx of the index finger and extending distally to incompetence the entire index finger and then extending proximally spreading along the dorsal aspect of the hand as well as the palmar aspect of the hand. There is streaking up the forearm that does not extend past the antecubital fossa but the forearm compartment is soft and there is no crepitus appreciated throughout the forearm wrist and hand as well as the index finger. With palpation of the right index finger there is extreme amount of induration without fluctuance at the proximal phalanx extending to the distal part of the index finger and extending up to the metacarpal area. The joints are intact without fluid and there are no bony defects or deformities and no crepitus. There are 2 scab-like areas seen at the radial aspect of the proximal phalanx of the right index finger where the cat actually bit the patient. The patient can flex and extend against resistance but he says that there is some discomfort in the index finger. Remainder of the fingers he can flex and extend and he only complains that there is tightness from the soft tissue swelling but no pain. He does say that when he tries to oppose his thumb there is discomfort in the opponens muscle. Pulses are intact as is Refill. There are no epitrochlear or axillary lymph nodes appreciated on palpation the remainder of the upper extremity is without tenderness defects deformities or soft tissue changes. Neurovascular unremarkable. Neuro: Awake, alert, oriented. Cranial nerves II through XII unremarkable. Cerebellum unremarkable. Motor and sensory unremarkable throughout. Exam nonfocal. Diagnostics: CBC CMP lactic acid x-ray of the right hand Therapeutics: Tdap, IV placement IV Toradol Zosyn sling 1584: Case was discussed with the hand specialist Dr. Swanson at [facility] and he agrees with the Zosyn here and the Augmentin for home and would like to see the patient in his office tomorrow morning at 8 AM. He requested the patient eat nothing and drink nothing after midnight in case he needs to do surgery. I will also give the patient a sling for elevation. Patient understands the severity of this infection and the need to be seen by the hand specialist in the morning. I will give him Augmentin from [facility] and the patient says he will use Tylenol and ibuprofen for pain as he is not having much pain. X-rays have been forwarded to [facility] Impression: Infected cat bite of right index finger/early tenosynovitis Definitive disposition and diagnosis as appropriate pending reevaluation and review of above. Left Hand Pain Score (Numeric/FACES): 2 - Related Data Allergies Allergy/AdvReac Type Severity Reaction Status Date / Time No Known Allergies Allergy Verified 08/07/19 15:37 Home Meds: Home Meds Buprenorphine HCl/Naloxone HCl [Suboxone 12 mg-3 mg Sl Film] 12 mg PO DAILY 05/13 [History] busPIRone [Buspar] 15 mg PO TID 05/01/19 [History] Acetaminophen 1,000 mg PO ASDIRECTED 05/09/19 [History] Ibuprofen 800 mg PO ASDIRECTED 05/09/19 [History] Past Medical History - Past Health History Medical/Surgical History: Denies Medical/Surgical History HEENT History: Reports: None Cardiovascular History: Reports: None Respiratory History: Reports: Asthma Gastrointestinal History: Reports: None Genitourinary History: Reports: None Musculoskeletal History: Reports: Fracture Psychiatric History: Reports: Addiction, Anxiety, Depression Endocrine/Metabolic History: Reports: None - Infectious Disease History Infectious Disease History: Reports: Hepatitis C, MRSA - Past Surgical History Head Surgeries/Procedures: Reports: None HEENT Surgical History: Reports: None Respiratory Surgical History: Reports: None Neurological Surgical History: Reports: None Musculoskeletal Surgical History: Reports: Other (See Below) Other Musculoskeletal Surgeries/Procedures:: Left hand surgery with pins Dermatological Surgical History: Reports: None Social & Family History - Family History Family Medical History: Noncontributory HEENT: Reports: None - Tobacco Use Smoking Status *Q: Current Every Day Smoker Years of Tobacco use: 10 Packs/Tins Daily: 1 - Caffeine Use Caffeine Use: Reports: Coffee, Soda - Recreational Drug Use Recreational Drug Use: Yes Drug Use in Last 12 Months: Yes Recreational Drug Type: Reports: Heroin - Living Situation & Occupation Occupation: Unemployed ED ROS GENERAL - Review of Systems Review Of Systems: ROS reveals no pertinent complaints other than HPI. ED EXAM, SKIN/RASH Exam: See Below (See dictation) Course - Vital Signs Last Recorded V/S: Last Vital Signs Temp 36.6 C 08/07/19 15:37 Pulse 80 08/07/19 15:37 Resp 18 08/07/19 15:37 BP 127/66 08/07/19 15:37 Pulse Ox 98 08/07/19 15:37 - Orders/Labs/Meds Orders: Active Orders 24 hr Category Date Time Status Vaccines to be Administered [RC] PER UNIT ROUTINE Care 08/07/19 15:49 Active COMPREHENSIVE METABOLIC PN,CMP [CHEM] Stat Lab 08/07/19 15:58 Received Sodium Chloride 0.9% [Saline Flush] Med 08/07/19 15:45 Active 10 ml FLUSH ASDIRECTED PRN Sodium Chloride 0.9% [Saline Flush] Med 08/07/19 15:45 Active 2.5 ml FLUSH ASDIRECTED PRN DME for Discharge [COMM] Stat Oth 08/07/19 16:37 Ordered Saline Lock Insert [OM.PC] Stat Oth 08/07/19 15:43 Ordered Medication Orders Sodium Chloride (Saline Flush) 10 ml FLUSH ASDIRECTED PRN PRN Reason: Keep Vein Open Last Admin: 08/07/19 15:59 Dose: 10 ml Sodium Chloride (Saline Flush) 2.5 ml FLUSH ASDIRECTED PRN PRN Reason: Keep Vein Open Last Admin: 08/07/19 15:59 Dose: 2.5 ml Labs: Laboratory Tests 08/07/19 08/07/19 Range/Units 15:58 15:58 WBC 5.21 (4.0-11.0) K/uL RBC 4.26 L (4.50-5.90) M/uL Hgb 11.8 L (13.0-17.0) g/dL Hct 35.4 L (38.0-50.0) % MCV 83.1 (80.0-98.0) fL MCH 27.7 (27.0-32.0) pg MCHC 33.3 (31.0-37.0) g/dL RDW Std Deviation 44.7 (28.0-62.0) fl RDW Coeff of Michele 15 (11.0-15.0) % Plt Count 188 (150-400) K/uL MPV 9.60 (7.40-12.00) fL Neut % (Auto) 53.0 (48.0-80.0) % Lymph % (Auto) 35.3 (16.0-40.0) % [place] % (Auto) 11.3 (0.0-15.0) % Eos % (Auto) 0.0 (0.0-7.0) % Baso % (Auto) 0.4 (0.0-1.5) % Neut # (Auto) 2.8 (1.4-5.7) K/uL Lymph # (Auto) 1.8 (0.6-2.4) K/uL [place] # (Auto) 0.6 (0.0-0.8) K/uL Eos # (Auto) 0.0 (0.0-0.7) K/uL Baso # (Auto) 0.0 (0.0-0.1) K/uL Nucleated RBC % 0.0 /100WBC Nucleated RBCs # 0 K/uL Lactate 1.3 (0.20-2.00) mmol/L Meds: Medications Generic Name Dose Route Start Last Admin Trade Name Freq PRN Reason Stop Dose Admin Sodium Chloride 10 ml 08/07/19 15:45 08/07/19 15:59 Saline Flush FLUSH 10 ml ASDIRECTED PRN Administration Keep Vein Open Sodium Chloride 2.5 ml 08/07/19 15:45 08/07/19 15:59 Saline Flush FLUSH 2.5 ml ASDIRECTED PRN Administration Keep Vein Open Discontinued Medications Generic Name Dose Route Start Last Admin Trade Name Freq PRN Reason Stop Dose Admin Diphtheria/Tetanus/Acell Pertussis 0.5 ml 08/07/19 15:49 08/07/19 15:58 Adacel IM 08/07/19 15:50 0.5 ml .ONCE ONE Administration Piperacillin Sod/Tazobactam 50 mls @ 100 mls/hr 08/07/19 15:45 08/07/19 15:59 Sod 3.375 gm/ Sodium Chloride IV 08/07/19 16:14 100 mls/hr ONETIME ONE Administration Ketorolac Tromethamine 30 mg 08/07/19 15:46 08/07/19 15:58 Toradol IVPUSH 08/07/19 15:47 30 mg ONETIME ONE Administration Departure - Departure Time of Disposition: 16:39 Disposition: Home, Self-Care 01 Condition: Good Clinical Impression: Cellulitis Qualifiers: Site of cellulitis: extremity Site of cellulitis of extremity: finger Laterality: right Qualified Code(s): L03.011 - Cellulitis of right finger Cat bite of index finger Qualifiers: Encounter type: initial encounter Qualified Code(s): S61.258A - Open bite of other finger without damage to nail, initial encounter; W55.01XA - Bitten by cat , initial encounter - Discharge Information Referrals: PCP,None [Primary Care Provider] - Forms: ED Department Discharge Additional Instructions: The following information is given to patients seen in the emergency department who are being discharged to home. This information is to outline your options for follow-up care. We provide all patients seen in our emergency department with a follow-up referral. The need for follow-up, as well as the timing and circumstances, are variable depending upon the specifics of your emergency department visit. If you don't have a primary care physician on staff, we will provide you with a referral. We always advise you to contact your personal physician following an emergency department visit to inform them of the circumstance of the visit and for follow-up with them and/or the need for any referrals to a consulting specialist. The emergency department will also refer you to a specialist when appropriate. This referral assures that you have the opportunity for followup care with a specialist. All of these measure are taken in an effort to provide you with optimal care, which includes your followup. Under all circumstances we always encourage you to contact your private physician who remains a resource for coordinating your care. When calling for followup care, please make the office aware that this follow-up is from your recent emergency room visit. If for any reason you are refused follow-up, please contact the [facility] emergency department at and ask to speak to the emergency department charge nurse. [facility] Primary care- Internal Medicine and Family [address] [address] You have been given the information and the addressed for the hand specialist at [facility], Dr. Swanson. You need to be at his office at 8 AM tomorrow morning and do not eat or drink anything after midnight as he will decide upon evaluating you if you need surgery to clean the infection out of the finger. You have been given [facility], Augmentin antibiotics, which you must start this evening and continue taking with a sip of water in the morning. Elevate the hand as much as possible using sling when you're up walking about and on pillows when you're seated. Use [id number] Tylenol or ibuprofen for pain and return to ER as needed and asked to - My Orders Last 24 Hours: My Active Orders 08/07/19 15:43 Saline Lock Insert [OM.PC] Stat 08/07/19 15:45 Sodium Chloride 0.9% [Saline Flush] 10 ml FLUSH ASDIRECTED PRN Sodium Chloride 0.9% [Saline Flush] 2.5 ml FLUSH ASDIRECTED PRN 08/07/19 15:49 Vaccines to be Administered [RC] PER UNIT ROUTINE 08/07/19 15:58 COMPREHENSIVE METABOLIC PN,CMP [CHEM] Stat 08/07/19 16:37 DME for Discharge [COMM] Stat - Assessment/Plan Last 24 Hours: My Active Orders 08/07/19 15:43 Saline Lock Insert [OM.PC] Stat 08/07/19 15:45 Sodium Chloride 0.9% [Saline Flush] 10 ml FLUSH ASDIRECTED PRN Sodium Chloride 0.9% [Saline Flush] 2.5 ml FLUSH ASDIRECTED PRN 08/07/19 15:49 Vaccines to be Administered [RC] PER UNIT ROUTINE 08/07/19 15:58 COMPREHENSIVE METABOLIC PN,CMP [CHEM] Stat 08/07/19 16:37 DME for Discharge [COMM] Stat
--- NOTE | 2019-08-07 16:20 | CR ---
INDICATION: Cat bite. TECHNIQUE: Three views of the right hand. COMPARISON: None. IMPRESSION: There is soft tissue swelling of the index finger. No soft tissue gas or foreign body is seen. No acute osseous abnormality. Old healed fracture deformity of the 5th metacarpal. Dictated by Luther Johnson MD @ 08/07/2019 4:18:29 PM Dictated by: Luther Johnson MD @ 08/07/2019 16:18:57 (Electronically Signed)
[2019-08-07 16:39] LABS: BLOOD UREA NITROGEN,BUN 19 mg/dL (7.0-18.0); CARBON DIOXIDE,CO2 27.6 mmol/L (21.0-32.0); CHLORIDE,CL 103 mmol/L (98-107); GLUCOSE RANDOM 114 mg/dL (74-106); POTASSIUM,K 4.1 mmol/L (3.5-5.1); SODIUM,NA 139 mmol/L (136-148)
[2019-08-07 17:29] VITALS: BP 135/71; PULSE 89
== END 2019-08-07 17:25 | disposition home or self-care (01) ==
LOC: MW.ED 15:17
DX: S61.258A Open bite of other finger without damage to nail, initial encounter (principal); L03.011 Cellulitis of right finger; J45.909 Unspecified asthma, uncomplicated; F17.210 Nicotine dependence, cigarettes, uncomplicated; Z23 Encounter for immunization; W55.01XA Bitten by cat, initial encounter
CPT/HCPCS: 36415; 73130; 80053; 83605; 85025; 90471; 90715; 96365; 96375; 99283; J1885; J2543; J7050

== ENCOUNTER 2019-08-23 14:29 | Emergency (ER) | payer MEDICAID ==
--- NOTE | 2019-08-23 15:00 | EDM.PDOC ---
ED HPI GENERAL MEDICAL PROBLEM - General Chief Complaint: Skin Complaint Stated Complaint: INFECTION Time Seen by Provider: 08/23/19 14:50 Source of Information: Reports: Patient History Limitations: Reports: No Limitations - History of Present Illness INITIAL COMMENTS - FREE TEXT/NARRATIVE: HISTORY AND PHYSICAL: History of present illness: Patient is a 28-year-old male presents to the ED with complaint of skin infection. He states it started as an ingrown hair on his right knee 3 days ago and has progressively gotten worse. He denies fevers, chills, nausea, vomiting. He is able to walk on the right without difficulty. Patient has a history of a deep abscess to the right medial knee requiring transfer to [place] for drainage and ID consult. Patient was MRSA positive and states it only responded to doxycycline. He states this skin infection is different as before he had fevers, swelling of his knee and unable to bear any weight on it. Patient states he wants to try oral medications first and is declining any IV or parenteral antibiotics at this time. Review of systems: As per history of present illness and below otherwise all systems reviewed and negative. Past medical history: As per history of present illness and as reviewed below otherwise noncontributory. Surgical history: As per history of present illness and as reviewed below otherwise noncontributory. Social history: No reported history of drug or alcohol abuse. Family history: As per history of present illness and as reviewed below otherwise noncontributory. Physical exam: General: Patient sitting comfortably in no acute distress and nontoxic appearing HEENT: Atraumatic, normocephalic, pupils reactive, negative for conjunctival pallor or scleral icterus, mucous membranes moist, throat clear, neck supple, nontender, trachea midline. No meningeal signs. Lungs: Clear to auscultation, breath sounds equal bilaterally, chest nontender. Heart: S1S2, regular, negative for clicks, rubs, or overt murmur. Abdomen: Soft, nondistended, nontender. Negative for masses or hepatosplenomegaly. Negative for costovertebral tenderness. No rigidity, rebound , guarding. Pelvis: Stable nontender. Genitourinary: Deferred. Rectal: Deferred. Extremities: There is erythema and warmth of the right anterior knee. Normal ROM of the right know without pain with active flexion and extension. Atraumatic , negative for cords or calf pain. Neurovascular unremarkable. Neuro: Awake, alert, oriented. Cranial nerves II through XII unremarkable. Cerebellum unremarkable. Motor and sensory unremarkable throughout. Exam nonfocal. Notes: Diagnostics: CBC, CMP, x-ray right knee Therapeutics: Declined IV antibiotics Prescriptions: Doxycycline Impression: Cellulitis Plan: Take antibiotic as instructed Follow up with primary care provider Return to ED as needed as discussed Definitive disposition and diagnosis as appropriate pending reevaluation and review of above. right knee Pain Score (Numeric/FACES): 5 - Related Data Allergies Allergy/AdvReac Type Severity Reaction Status Date / Time No Known Allergies Allergy Verified 08/23/19 14:40 Home Meds: Home Meds Buprenorphine HCl/Naloxone HCl [Suboxone 12 mg-3 mg Sl Film] 12 mg PO DAILY 05/13 [History] busPIRone [Buspar] 15 mg PO TID 05/01/19 [History] Acetaminophen 1,000 mg PO ASDIRECTED 05/09/19 [History] Ibuprofen 800 mg PO ASDIRECTED 05/09/19 [History] Doxycycline [Vibramycin] 100 mg PO BID 10 Days #20 tab 08/23/19 [Rx] Past Medical History - Past Health History Medical/Surgical History: Denies Medical/Surgical History HEENT History: Reports: None Cardiovascular History: Reports: None Respiratory History: Reports: Asthma Gastrointestinal History: Reports: None Genitourinary History: Reports: None Musculoskeletal History: Reports: Fracture Psychiatric History: Reports: Addiction, Anxiety, Depression Endocrine/Metabolic History: Reports: None - Infectious Disease History Infectious Disease History: Reports: MRSA - Past Surgical History Head Surgeries/Procedures: Reports: None HEENT Surgical History: Reports: Oral Surgery Respiratory Surgical History: Reports: None Neurological Surgical History: Reports: None Musculoskeletal Surgical History: Reports: Other (See Below) Other Musculoskeletal Surgeries/Procedures:: Left hand surgery with pins Dermatological Surgical History: Reports: None Social & Family History - Family History Family Medical History: Noncontributory HEENT: Reports: None - Tobacco Use Smoking Status *Q: Current Every Day Smoker Years of Tobacco use: 10 Packs/Tins Daily: 0.5 - Caffeine Use Caffeine Use: Reports: Coffee, Soda - Recreational Drug Use Recreational Drug Use: No - Living Situation & Occupation Occupation: Unemployed ED ROS GENERAL - Review of Systems Review Of Systems: ROS reveals no pertinent complaints other than HPI. ED EXAM, SKIN/RASH Exam: See Below (see dictation) Course - Vital Signs Last Recorded V/S: Last Vital Signs Temp 98.4 F 08/23/19 14:38 Pulse 83 08/23/19 14:38 Resp 16 08/23/19 14:38 BP 121/54 L 08/23/19 14:38 Pulse Ox 97 08/23/19 14:38 - Orders/Labs/Meds Labs: Laboratory Tests 08/23/19 08/23/19 Range/Units 15:00 15:00 WBC 8.74 (4.0-11.0) K/uL RBC 4.42 L (4.50-5.90) M/uL Hgb 12.3 L (13.0-17.0) g/dL Hct 36.5 L (38.0-50.0) % MCV 82.6 (80.0-98.0) fL MCH 27.8 (27.0-32.0) pg MCHC 33.7 (31.0-37.0) g/dL RDW Std Deviation 43.3 (28.0-62.0) fl RDW Coeff of Michele 15 (11.0-15.0) % Plt Count 230 (150-400) K/uL MPV 9.30 (7.40-12.00) fL Neut % (Auto) 71.6 (48.0-80.0) % Lymph % (Auto) 21.1 (16.0-40.0) % [place] % (Auto) 6.4 (0.0-15.0) % Eos % (Auto) 0.6 (0.0-7.0) % Baso % (Auto) 0.3 (0.0-1.5) % Neut # (Auto) 6.3 H (1.4-5.7) K/uL Lymph # (Auto) 1.8 (0.6-2.4) K/uL [place] # (Auto) 0.6 (0.0-0.8) K/uL Eos # (Auto) 0.1 (0.0-0.7) K/uL Baso # (Auto) 0.0 (0.0-0.1) K/uL Nucleated RBC % 0.0 /100WBC Nucleated RBCs # 0 K/uL Sodium 140 (136-148) mmol/L Potassium 3.7 (3.5-5.1) mmol/L Chloride 102 (98-107) mmol/L Carbon Dioxide 30.9 (21.0-32.0) mmol/L BUN 17 (7.0-18.0) mg/dL Creatinine 0.8 (0.8-1.3) mg/dL Est Cr Clr Drug Dosing 149.54 mL/min Estimated GFR (MDRD) > 60.0 ml/min Glucose 115 H (74-106) mg/dL Calcium 8.5 (8.5-10.1) mg/dL Total Bilirubin 0.7 (0.2-1.0) mg/dL AST 36 (15-37) IU/L ALT 34 (14-63) IU/L Alkaline Phosphatase 85 (46-116) U/L Total Protein 7.5 (6.4-8.2) g/dL Albumin 3.7 (3.4-5.0) g/dL Globulin 3.8 (2.6-4.0) g/dL Albumin/Globulin Ratio 1.0 (0.9-1.6) Departure - Departure Time of Disposition: 16:09 Disposition: Home, Self-Care 01 Condition: Good Clinical Impression: Cellulitis Qualifiers: Site of cellulitis: extremity Site of cellulitis of extremity: finger Laterality: right Qualified Code(s): L03.011 - Cellulitis of right finger - Discharge Information Prescriptions: Doxycycline [Vibramycin] 100 mg PO BID 10 Days #20 tab Referrals: Giuliano Payton MD [Primary Care Provider] - Forms: ED Department Discharge Additional Instructions: The following information is given to patients seen in the emergency department who are being discharged to home. This information is to outline your options for follow-up care. We provide all patients seen in our emergency department with a follow-up referral. The need for follow-up, as well as the timing and circumstances, are variable depending upon the specifics of your emergency department visit. If you don't have a primary care physician on staff, we will provide you with a referral. We always advise you to contact your personal physician following an emergency department visit to inform them of the circumstance of the visit and for follow-up with them and/or the need for any referrals to a consulting specialist. The emergency department will also refer you to a specialist when appropriate. This referral assures that you have the opportunity for follow-up care with a specialist. All of these measure are taken in an effort to provide you with optimal care, which includes your follow-up. Under all circumstances we always encourage you to contact your private physician who remains a resource for coordinating your care. When calling for follow-up care, please make the office aware that this follow-up is from your recent emergency room visit. If for any reason you are refused follow-up, please contact the [facility] Emergency Department at and asked to speak to the emergency department charge nurse. [facility] [address] [place] [id number] [facility] [address] [place] [id number] Take antibiotic as instructed Follow up with primary care provider return to ED as needed as discussed
[2019-08-23 15:29] LABS: BLOOD UREA NITROGEN,BUN 17 mg/dL (7.0-18.0); CARBON DIOXIDE,CO2 30.9 mmol/L (21.0-32.0); CHLORIDE,CL 102 mmol/L (98-107); GLUCOSE RANDOM 115 mg/dL (74-106); POTASSIUM,K 3.7 mmol/L (3.5-5.1); SODIUM,NA 140 mmol/L (136-148)
--- NOTE | 2019-08-23 16:06 | CR ---
Indication: Cellulitis. Technique: Three views of the right knee were obtained. Comparison: None Findings: No acute fracture or subluxation is identified. The joint spaces are well maintained. A significant joint effusion is not appreciated. Skin thickening is identified anterior to the patella. Impression: Skin thickening anterior to the patella. No bony erosions. Dictated by Ailyn Dewitt MD @ Aug 23 2019 4:03PM Signed by Dr. Ailyn Dewitt @ Aug 23 2019 4:04PM
[2019-08-23 16:17] VITALS: BP 110/52; PULSE 74
== END 2019-08-23 16:17 | disposition home or self-care (01) ==
LOC: MW.ED 14:29
DX: L03.115 Cellulitis of right lower limb (principal); F41.9 Anxiety disorder, unspecified; Z79.899 Other long term (current) drug therapy
CPT/HCPCS: 36415; 73562-26-RT; 73562-RT; 80053; 85025; 99283-25

== ENCOUNTER 2019-09-06 21:28 | Emergency (ER) | payer MEDICAID ==
[2019-09-06] MEDS ORDERED: ceFAZolin 1 GM Vial IM ONE (21:43)
[2019-09-06] MEDS ORDERED: Water For Injection, Sterile 20 ML ONE (21:50)
--- NOTE | 2019-09-06 22:20 | CR ---
INDICATION: 2nd digit laceration Dictated by: Alexis Pryor MD @ 09/06/2019 22:18:42 (Electronically Signed)
--- NOTE | 2019-09-06 22:33 | EDM.PDOC ---
ED HPI GENERAL MEDICAL PROBLEM - General Chief Complaint: Laceration Stated Complaint: CUT ON RT FINGER Time Seen by Provider: 09/06/19 21:59 - History of Present Illness INITIAL COMMENTS - FREE TEXT/NARRATIVE: HISTORY AND PHYSICAL: History of present illness: The patient is a 28-year-old male who is up-to-date on tetanus and presents with a cut to his right index finger that occurred while he was using a switchbox assembler. The patient was in his usual state of good health with no systemic issues when this occurred. Laceration is only on the right index finger and that there were no their injuries. Patient is able to move the finger but says that he has great discomfort with that. Review of systems: As per history of present illness and below otherwise all systems reviewed and negative. Past medical history: As per history of present illness and as reviewed below otherwise noncontributory. Surgical history: As per history of present illness and as reviewed below otherwise noncontributory. Social history: No reported history of drug or alcohol abuse. Family history: As per history of present illness and as reviewed below otherwise noncontributory. Physical exam: General: Well-developed well-nourished man who is nontoxic and vital signs were noted by me HEENT: Atraumatic, normocephalic, negative for conjunctival pallor or scleral icterus, mucous membranes moist, throat clear, neck supple, nontender, trachea midline. Lungs: Clear to auscultation, breath sounds equal bilaterally, chest nontender. Heart: S1S2, regular and rhythm no overt murmurs Abdomen: Soft, nondistended, nontender. Pelvis: Deferred Genitourinary: Deferred. Rectal: Deferred. Extremities: Atraumatic, full range of motion of all digits including the right index finger with normal flexion and extension. At the radial aspect of the right index finger crossing the PIP flexure area there is a 3 cm laceration with depth and active oozing. There is slight numbness at the tip of the finger but the patient can flex and extend against resistance and there is no gross soft tissue swelling or palpable bony deformity. Neurovascular unremarkable. Neuro: Awake, alert, oriented. Cranial nerves II through XII unremarkable. Cerebellum unremarkable. Motor and sensory unremarkable throughout. Exam nonfocal. Diagnostics: X-ray right index finger Therapeutics: Ancef IM lidocaine without epinephrine for suture repair bacitracin and Surgicel Tubegauz Procedure note: After the wound was copiously irrigated by nursing a digital block was placed using 1% lidocaine without epinephrine as well as local anesthetic at the wound edges. Wound was explored and there were no foreign bodies appreciated. The skin edges were reapproximated using simple interrupted sutures for a total number of #8 sutures of 4-0 nylon. There were no complications and hemostasis was achieved. Patient tolerated the procedure well. Some Surgicel was placed to ensure hemostasis as well as bacitracin and a tube gauze. Patient will be given Keflex for home due to the depth of the wound and the depth of the wound and the repair was discussed with both the patient and mother at bedside. Impression: Right index finger laceration Definitive disposition and diagnosis as appropriate pending reevaluation and review of above. right index Pain Score (Numeric/FACES): 9 - Related Data Allergies Allergy/AdvReac Type Severity Reaction Status Date / Time No Known Allergies Allergy Verified 09/06/19 21:51 Home Meds: Home Meds Buprenorphine HCl/Naloxone HCl [Suboxone 12 mg-3 mg Sl Film] 12 mg PO DAILY 05/13 [History] busPIRone [Buspar] 15 mg PO TID 05/01/19 [History] Acetaminophen 1,000 mg PO ASDIRECTED 05/09/19 [History] Ibuprofen 800 mg PO ASDIRECTED 05/09/19 [History] Doxycycline [Vibramycin] 100 mg PO BID 10 Days #20 tab 08/23/19 [Rx] Past Medical History - Past Health History Medical/Surgical History: Denies Medical/Surgical History HEENT History: Reports: None Cardiovascular History: Reports: None Respiratory History: Reports: Asthma Gastrointestinal History: Reports: None Genitourinary History: Reports: None Musculoskeletal History: Reports: Fracture Neurological History: Reports: None Psychiatric History: Reports: Addiction, Anxiety, Depression Endocrine/Metabolic History: Reports: None 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 Hematologic History: Reports: None Immunologic History: Reports: None Dermatologic History: Reports: None - Infectious Disease History Infectious Disease History: Reports: None - Past Surgical History Head Surgeries/Procedures: Reports: None HEENT Surgical History: Reports: Oral Surgery Respiratory Surgical History: Reports: None Neurological Surgical History: Reports: None Musculoskeletal Surgical History: Reports: Other (See Below) Other Musculoskeletal Surgeries/Procedures:: Left hand surgery with pins Dermatological Surgical History: Reports: None Social & Family History - Family History Family Medical History: Noncontributory HEENT: Reports: None - Tobacco Use Smoking Status *Q: Current Every Day Smoker Years of Tobacco use: 10 Packs/Tins Daily: 0.5 - Caffeine Use Caffeine Use: Reports: None - Recreational Drug Use Recreational Drug Use: No - Living Situation & Occupation Occupation: Unemployed ED ROS GENERAL - Review of Systems Review Of Systems: Comprehensive ROS is negative, except as noted in HPI. ED EXAM, SKIN/RASH Exam: See Below (see dictation) Course - Vital Signs Last Recorded V/S: Last Vital Signs Temp 36.4 C 09/06/19 21:35 Pulse 89 09/06/19 21:35 Resp 18 09/06/19 21:35 BP 120/65 09/06/19 21:35 Pulse Ox 98 09/06/19 21:35 - Orders/Labs/Meds Meds: Medications Discontinued Medications Generic Name Dose Route Start Last Admin Trade Name Mark PRN Reason Stop Dose Admin Cefazolin Sodium 1 gm 09/06/19 21:43 09/06/19 22:07 Ancef IM 09/06/19 21:44 1 gm ONETIME ONE Administration Sterile Water Confirm 09/06/19 21:50 09/06/19 22:07 Sterile Water For Injection Administered 09/06/19 21:51 2.5 mls/hr Dose Administration 20 mls @ as directed .ROUTE .STK-MED ONE Lidocaine HCl 5 ml 09/06/19 21:42 09/06/19 22:07 Xylocaine-Mpf 1% INJECT 09/06/19 21:43 5 ml ONETIME ONE Administration Departure - Departure Time of Disposition: 23:00 Disposition: Home, Self-Care 01 Condition: Good Clinical Impression: Laceration of right index finger Qualifiers: Encounter type: initial encounter Damage to nail status: without damage Foreign body presence: without foreign body Qualified Code(s): S61.210A - Laceration without foreign body of right index finger without damage to nail, initial encounter - Discharge Information Referrals: PCP,None [Primary Care Provider] - Forms: ED Department Discharge Additional Instructions: The following information is given to patients seen in the emergency department who are being discharged to home. This information is to outline your options for follow-up care. We provide all patients seen in our emergency department with a follow-up referral. The need for follow-up, as well as the timing and circumstances, are variable depending upon the specifics of your emergency department visit. If you don't have a primary care physician on staff, we will provide you with a referral. We always advise you to contact your personal physician following an emergency department visit to inform them of the circumstance of the visit and for follow-up with them and/or the need for any referrals to a consulting specialist. The emergency department will also refer you to a specialist when appropriate. This referral assures that you have the opportunity for followup care with a specialist. All of these measure are taken in an effort to provide you with optimal care, which includes your followup. Under all circumstances we always encourage you to contact your private physician who remains a resource for coordinating your care. When calling for followup care, please make the office aware that this follow-up is from your recent emergency room visit. If for any reason you are refused follow-up, please contact the [facility] emergency department at and ask to speak to the emergency department charge nurse. [facility] Primary care- Internal [place] [address] Keep the dressing that was placed on in the ED in place for the next 24 hours then remove and cleanse with mild soap and water pat dry and apply bacitracin or Neosporin. If you need to cover the area please use gauze or breathable dressing. Do not place Band-Aids on the area as this will injure wound healing. Keep open to air when you're at home. Take Keflex as prescribed for infection prophylaxis. Sutures removed in 7 days here in the emergency department or with your provider in the clinic. Return to ER as needed and as discussed
[2019-09-06 23:13] VITALS: BP 109/49; PULSE 86
== END 2019-09-06 23:13 | disposition home or self-care (01) ==
LOC: MW.ED 21:28
DX: S61.210A Laceration without foreign body of right index finger without damage to nail, initial encounter (principal); F17.210 Nicotine dependence, cigarettes, uncomplicated; J45.909 Unspecified asthma, uncomplicated; F41.9 Anxiety disorder, unspecified; F32.9 Major depressive disorder, single episode, unspecified; Z79.899 Other long term (current) drug therapy; W26.8XXA Contact with other sharp object(s), not elsewhere classified, initial encounter
CPT/HCPCS: 12002; 73130; 96372; 99283; J0690; J2001; 99282

== ENCOUNTER 2019-09-19 23:08 | Emergency (ER) | payer MEDICAID ==
[2019-09-19 23:27] VITALS: BP 132/67; PULSE 87
== END 2019-09-19 23:25 | disposition left against medical advice (07) ==
LOC: MW.ED 23:08
DX: Z48.02 Encounter for removal of sutures (principal)
CPT/HCPCS: 99281

== ENCOUNTER 2020-07-20 13:27 | Emergency (ER) | payer MEDICAID ==
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
--- NOTE | 2020-07-20 17:20 | CT ---
CT facial bones Technique: Multiple axial sections through the facial bones were obtained. Reconstructed coronal and sagittal images were obtained. Findings: There appears to be some dental caries present within the teeth. Slightly displaced and mildly comminuted nasal bone fracture is seen. No additional facial bone fracture is appreciated. Right and left globes are symmetric. Soft tissue swelling is seen within the face, worse on the left side. Impression: 1. Soft tissue swelling. 2. Mildly comminuted and mildly displaced nasal bone fracture. 3. Several dental caries. Diagnostic code #3 Study was dictated in MDT MTDD
--- NOTE | 2020-07-20 17:21 | CT ---
Head CT Technique: Multiple axial sections through the brain were obtained. Intravenous contrast was not utilized. Comparison: No prior intracranial imaging is available. Findings: Ventricles along with basal cisterns and sulci over the convexities are within normal limits for the patient's age. No abnormal parenchymal densities are seen. No evidence of intracranial hemorrhage. No midline shift or mass effect is seen. No acute calvarial abnormality is appreciated. Nasal bone fracture is again noted. Visualized mastoid sinuses and paranasal sinuses show nothing acute. Impression: 1. Nasal bone fracture is again noted. 2. Nothing acute is appreciated on noncontrast head CT exam. Diagnostic code #3 Study was dictated in MDT MTDD
--- NOTE | 2020-07-20 17:22 | CT ---
CT cervical spine Technique: Multiple axial sections through the cervical spine were obtained. Study was obtained from above C1 inferiorly to the mid T3 level. Reconstructed sagittal and coronal images were reviewed. Findings: Detached bony density is seen off the tip of the spinous process of C7. This appears to be old. Vertebral body heights and disc spaces are maintained. No bony central or bony neural foraminal stenosis is seen. No acute fracture or abnormal subluxation is seen. Impression: 1. Nothing acute is appreciated on CT study of the cervical spine. Diagnostic code #2 Study was dictated in MDT MTDD
[2020-07-20] MEDS ORDERED: Lidocaine 1% with EPINEPHrine 1:100,000 20 ML MDV INJECT ONE (17:50)
[2020-07-20] MEDS ORDERED: Metoclopramide 10 MG/2 ML SDV IM ONE (19:08)
[2020-07-20] MEDS ORDERED: diphenhydrAMINE 50 MG/ML SDV IM ONE (19:08)
[2020-07-20] MEDS ORDERED: Sodium Chloride 0.9% 2.5 ML Syringe FLUSH PRN (19:12)
[2020-07-20] MEDS ORDERED: Sodium Chloride 0.9% 10 ML Syringe FLUSH PRN (19:12)
[2020-07-20 20:40] LABS: BLOOD UREA NITROGEN,BUN 15 mg/dL (7.0-18.0); CARBON DIOXIDE,CO2 27.3 mmol/L (21.0-32.0); CHLORIDE,CL 104 mmol/L (98-107); GLUCOSE RANDOM 109 mg/dL (74-106); POTASSIUM,K 3.8 mmol/L (3.5-5.1); SODIUM,NA 140 mmol/L (136-148)
[2020-07-20 21:39] VITALS: BP 132/64; PULSE 73
== END 2020-07-20 21:57 ==
LOC: MW.ED 13:27
DX: S02.2XXA Fracture of nasal bones, initial encounter for closed fracture (principal); S01.412A Laceration without foreign body of left cheek and temporomandibular area, initial encounter; S01.01XA Laceration without foreign body of scalp, initial encounter; J45.909 Unspecified asthma, uncomplicated; F41.9 Anxiety disorder, unspecified; Z79.899 Other long term (current) drug therapy; Y04.0XXA Assault by unarmed brawl or fight, initial encounter; Y92.149 Unspecified place in prison as the place of occurrence of the external cause
CPT/HCPCS: 12013; 36415; 70450; 70486; 72125; 80053; 85025; 85610; 96372; 99284; J1200; J2765; 99291